=== PATIENT | male | born 1955 | race Caucasian/White ===

== ENCOUNTER 2021-11-14 20:49 | Emergency (ER) | payer MEDICARE, SELFPAY ==
[2021-11-14 21:30] VITALS: BP 172/90; PULSE 85; RESP 18; TEMP 36.4; O2SAT 97; BMI 34.5
--- NOTE | 2021-11-14 21:34 | CRLHL7_ITS ---
For Patients: As a result of the Century Cures Act, medical imaging exams and procedure reports are released immediately into your electronic medical record. You may view this report before your referring provider. If you have questions, please contact your health care provider. INDICATION: Post operative left lower extremity swelling TECHNIQUE: Ultrasound venous duplex left lower extremity. Real-time penaloza-scale (B mode 2D), color Doppler, and spectral Doppler imaging were performed with compression and augmentation. COMPARISON: None FINDINGS: Deep veins: The left common femoral, femoral, popliteal, and visualized calf veins are fully compressible, demonstrate normal color flow, and normal response to mechanical augmentation. The Duplex Doppler waveforms are normal in appearance. Superficial veins: The visualized greater saphenous and superficial veins of the leg and calf are unremarkable. Soft tissue: No masses or cysts are identified. No adenopathy is seen. IMPRESSION: 1. No sonographic evidence of acute deep venous thrombosis seen. Dictated by: Fawad Mathias MD @ 11/14/2021 23:30:56 (Electronically Signed)
--- NOTE | 2021-11-14 22:36 | ED.GENADULT ---
HPI - General Adult General Date Seen: 11/14/21 Chief complaint: Lower Extremity Swelling Stated complaint: LEFT LEG SWELLING,KNEE PROBLEMS POST-SURGERY Time Seen by Provider: 11/14/21 22:09 Source: patient History of Present Illness HPI narrative: Patient is a 66-year-old male who was almost 1 week post left RE. Says he has done well postoperatively, has not had a lot of pain at his incision site. He did develop some swelling in the left leg, which seems to just be getting steadily worse. He was on Xarelto until yesterday, now is on a baby aspirin. Does not have any history of DVT or PE, denies any family history of same. Has not had much pain in the leg, no pain distally. Has not noted significant redness. Just became concerned that things seem to be getting progressively worse, and his was concerned enough that they decided to come in tonight rather than waiting until his appointment tomorrow. Denies chest pain or shortness of breath. Related Data Home Medications Medication Instructions Recorded Confirmed aspirin 81 mg tablet,delayed 81 mg PO BID tab 11/13/21 11/13/21 release (Adult Low Dose Aspirin) atorvastatin 10 mg tablet 10 mg PO .Bedtime tab 11/13/21 11/13/21 celecoxib 200 mg capsule 200 mg PO DAILY 11/13/21 11/13/21 cholecalciferol (vitamin D3) 50 50 mcg PO QDAY 11/13/21 11/13/21 mcg (2,000 unit) tablet (Vitamin D3) epinephrine 0.3 mg/0.3 mL 0.3 mg IM ONCE 11/13/21 11/13/21 injection, auto-injector (EpiPen) gabapentin 300 mg capsule 300 mg PO .hs PRN cap 11/13/21 11/13/21 loratadine 10 mg tablet 10 mg PO QDAY PRN 11/13/21 11/13/21 mirabegron 50 mg tablet,extended 50 mg PO QDAY 11/13/21 11/13/21 release 24 hr (Myrbetriq) omeprazole 20 mg capsule,delayed 20 mg PO BID 11/13/21 11/13/21 release tamsulosin 0.4 mg capsule 0.8 mg PO 11/13/21 11/13/21 Allergies Allergy/AdvReac Type Severity Reaction Status Date / Time cephalexin Allergy Rash Verified 11/13/21 10:48 penicillin V AdvReac jittery, Verified 11/13/21 10:48 irritable VENOM-HONEY BEE Allergy Uncoded 11/13/21 10:48 Review of Systems Status of ROS: Reports: 10 or more systems reviewed and unremarkable except as noted in History and below [facility] Medical History Abdominal pain Arthritis of back Arthritis of knee, left Elevated cholesterol Gastroenteritis GERD (gastroesophageal reflux disease) L4-L5 disc bulge Restless leg syndrome Stroke (cerebrum) Syncope Volume depletion Surgical History History of hernia surgery History of total left hip replacement Status post total left knee replacement Family History (Updated 11/13/21 @ 11:21 by Bekah Huizar [facility]) Mother Cancer of liver Father Heart problem Social History Previous occupational history: industrial truck mechanic Smoking Status: Never smoker Do you use any of these nicotine containing products: None Second hand tobacco smoke exposure: No How often do you have a drink containing alcohol: never How often do you have six or more drinks on one occasion: Never AUDIT-C Alcohol total score: 0 Non-prescribed substance use: denies use service: No Exam Narrative: Exam Narrative: Vital signs as noted above. In general, an alert, well-appearing patient. Head: Normocephalic, atraumatic. Eyes: Pupils are equal reactive. Extraocular movements are full. Conjunctivae are normal. ENT: Mucous membranes are moist. Throat is normal. Neck: Supple without lymphadenopathy. Heart: Regular rate and rhythm. No murmur or rub. Lungs: Clear bilaterally. No increased work of breathing, crackles or wheezes. Abdomen: Soft and nontender. No organomegaly. Extremities: Right lower extremity is essentially normal, trace edema, dorsalis pedis pulse intact. On the left, he has a dressing in place on his incision but I do not see any significant erythema. Nontender, no significant focal swelling over the incision. He does have marked edema of the entire left leg. No erythema, no warmth and he does not have any tenderness. Neurologic: Patient is alert and oriented to person and place. Speech is fluent. Face is symmetric. Moves all extremities equally. Affect: Normal. Skin: Warm and dry. Well perfused. Const: Vital Signs, click to edit/add: Vital Signs - 24 hr 11/14/21 21:30 Temperature 97.6 F Pulse Rate [Left P ulse Oximeter] 85 Respiratory Rate 18 Blood Pressure [Ri ght Upper Arm] 172/90 H Pulse Oximetry 97 Documenting provider has reviewed patient's vital signs: yes Course Course Hospital Course: I did do a venous Doppler here, which was read by Radiology as negative. He does not have any erythema or pain in the leg, I do not think this represents infection. It is unilateral without any significant edema on the right, and I do not think this represents a more systemic problem such as congestive heart failure, renal or liver failure. I did not do more significant systemic workup. He does not have any other history of systemic disease. Short of breath, hypoxic, or showing other signs of systemic illness. His incision does not look infected and is not significantly painful. He has follow-up tomorrow with Orthopedics. He is wearing compression stockings. We talked about elevation. He may need to have more of a full-length compression stocking as the ones he is wearing right now our just up to the knee, but all let him discuss that with Orthopedics. For now, he is comfortable with discharge home. Will follow-up tomorrow, certainly if he has acute worsening or develops new symptoms such as erythema, pain, fever etcetera would want him to return to the emergency department. Vital Signs Vital signs: Initial Vital Signs Temperature 97.6 F 11/14/21 21:30 Temperature Source Temporal Artery Scan 11/14/21 21:30 Pulse Rate 85 11/14/21 21:30 Pulse Rhythm 11/14/21 21:30 Pulse Strength 0+ Absent 11/14/21 21:30 Respiratory Rate 18 11/14/21 21:30 Blood Pressure 172/90 H 11/14/21 21:30 Blood Pressure Mean 117 11/14/21 21:30 Blood Pressure Position Sitting 11/14/21 21:30 Pulse Oximetry 97 11/14/21 21:30 Oxygen Delivery Method 11/14/21 21:30 Vital Signs Temperature 97.6 F 11/14/21 21:30 Pulse Rate 85 11/14/21 21:30 Respiratory Rate 18 11/14/21 21:30 Blood Pressure 172/90 H 11/14/21 21:30 Pulse Oximetry 97 11/14/21 21:30 Temperature 97.6 F 11/14/21 21:30 Pulse Rate 85 11/14/21 21:30 Respiratory Rate 18 11/14/21 21:30 Blood Pressure 172/90 H 11/14/21 21:30 Pulse Oximetry 97 11/14/21 21:30 Discharge Plan Discharge Clinical Impression: Leg edema, left Patient Disposition: Home, Self-Care Condition: Stable Instructions: Leg Edema (ED) Additional Instructions: Orthopedic follow-up tomorrow as planned. Elevate as much as possible. Prescriptions: No Action tamsulosin 0.4 mg capsule 0.8 mg PO 0RF celecoxib 200 mg capsule 200 mg PO DAILY 0RF omeprazole 20 mg capsule,delayed release(DR/EC) 20 mg PO BID 0RF atorvastatin 10 mg tablet 10 mg PO .Bedtime 0RF gabapentin 300 mg capsule 300 mg PO .hs PRN0RF aspirin [Adult Low Dose Aspirin] 81 mg tablet,delayed release (DR/EC) 81 mg PO BID 0RF cholecalciferol (vitamin D3) [Vitamin D3] 50 mcg (2,000 unit) tablet 50 mcg PO QDAY 0RF epinephrine [EpiPen] 0.3 mg/0.3 mL auto-injector 0.3 mg IM ONCE 0RF Rx Instructions: as a single dose; may repeat once loratadine 10 mg tablet 10 mg PO QDAY PRN (Reason: allergy symptoms) 0RF Myrbetriq 50 mg tablet extended release 24 hr 50 mg PO QDAY 0RF Follow Up/Referrals: Anup Carvalho MD [Primary Care Provider] - Stand Alone Forms: Bookatable (Livebookings) Info Instructions
[2021-11-15] VITALS: BP 135/74; PULSE 89; RESP 18; TEMP 36.4
[2021-11-15 00:02] VITALS: BP 135/79; PULSE 89; RESP 16; TEMP 36.1; O2SAT 97
== END 2021-11-14 23:30 | disposition home or self-care (01) ==
PROVIDERS: Emergency Provider Emergency Medicine; PCP Family Medicine
DX: R60.0 Localized edema (principal)
CPT/HCPCS: 93971; 99282; 99283

== ENCOUNTER 2021-12-18 08:30 | Outpatient (RCR) | payer MEDICARE, SELFPAY ==
--- NOTE | 2021-11-22 08:53 | PT.OPEX ---
[facility] [place] Outpatient Eval PT [facility] Outpatient Eval Start: 11/21/21 13:54 Freq: Status: Active Protocol: Document 11/21/21 13:56 PURVI (Rec: 11/21/21 14:16 PURVI [id number]) E-Signed By Candy Pina DPT Physical Therapy Outpatient Evaluation Insurance Information Recert Due Date 01/24/22 Insurance Name Medicare B,Blue Cross/[employer] Medical Diagnosis s/p L RE 11/08/21 Treating Diagnosis s/p L RE 11/08/21 with L hip pain, impaired L hip/knee ROM, impaired L hip/LE mobility/ strength, limping/antalgic gait, limited tolerance for extended standing/walking Subjective Subjective Patient reports having L RE . He d/c home the next day, spouse able to assist at home as needed. Patient is doing HEP 2x/day, riding his stationary bike at home x 5 min a couple of times a day. Using advil or tylenol as needed. Icing regularly. Pain has been tolerable, increases some with activity. Sleep has been ok. Patient reports L hip had been bothering him for awhile prior to surgery as he tried an injection which was not helpful and then had to wait 3 month before he could have RE surgery. Patient was using FWW after surgery, has been able to transition to cane for amb. Patient c/o some L knee tightness, stiffness, soreness after the hip surgery. Hx of L TKA. He has been elevating L LE more the last couple of days and feels some of his swelling is coming down. Pain range 0-7/ 10. Date of Last Physician Visit 11/15/21 Date of Surgery (If applicable) 11/08/21 Current Work Status Retired Precautions Therapy Limitations/Systems Review Not Limited Assessment Assessment/Impression Patient is a 66 year old male s/p L RE 11/08/21 with L hip pain, impaired L hip/knee ROM, impaired L hip/LE mobility/ strength, limping/antalgic gait, limited tolerance for extended standing/walking. Pain range 0-7/10. Patient amb with SPC with slow, limping, antalgic gait. L hip and L knee ROM limited by pain, stiffness, tightness. Moderate swelling noted L thigh, knee, lower leg, ankle. Patient has been doing more elevation and icing the last couple of days and reports swelling is decreasing. Increased effort with transfers sit/supine and with lifting L LE. Reviewed HEP and able to progress with exercises this session. L knee ROM 0-92 degrees - heel slide exercise limited by L knee tightness, stiffness at this time. Patient able to sit with approx 90 degrees of hip flexion comfortable and lie supine comfortably. Patient declined tubigrip for L knee stating he already has some at home and will continue to ice/elevate. He would benefit from skilled PT for pain/swelling management, improved L hip/knee ROM, improved L hip/LE mobility/ strength, gait training, balance/proprioception training, and establishment of HEP. Plan of Care Rehabilitation Potential Good Physical Therapy Goals 1. Decrease L hip/thigh pain to less than/equal to 3/10 with daily activities and with the progression of PT activities over the next 4-6 weeks. 2. Improve L hip ROM over the next 4-6 weeks for improved gait mechanics, return to transfers with ease, and return to reciprocal stair negotiation. 3. Improve L hip/glut/LE/core strength over the next 8-10 weeks for return to transfers with ease, normal gait without AD, and extended standing/walking without flare up of pain. 4. Patient will be I with HEP within 10 weeks for progression toward above goals , ongoing self management of pain/sx, ongoing self improvements in L hip ROM/mobility/strength, and for return to daily and work activities, including standing /walking without flare up of pain. Coordination/Communication With Referral Source Treatment Plan/Direct Interventions Gait Training,Manual Therapy, Therapeutic Exercises Frequency/Duration 1-2x/week Patient Will Be Discharged From Therapy Completion of LTG(s),Skills Plateau,Independent w/HEP, Independently Progressing Evaluation Billing Untimed Code Treatment Minutes 22 Complexity Moderate Certification Information Initial Certification Date 11/21/21 Ending Certification Date 01/24/22
== END 2022-03-17 14:25 | disposition home or self-care (01) ==
PROVIDERS: PCP Family Medicine; Visit Provider Orthopaedic Surgery Sports Medicine
DX: M25.552 Pain in left hip (principal); R26.9 Unspecified abnormalities of gait and mobility; Z51.89 Encounter for other specified aftercare
CPT/HCPCS: 97110; 97162

== ENCOUNTER 2022-10-30 08:27 | Day surgery (SDC) | payer MEDICARE, SELFPAY ==
[2022-10-30] VITALS (13 sets, daily range): BP systolic 143–163; BP diastolic 85–95; PULSE 77–91; RESP 13–20; TEMP 36.4–36.7; O2SAT 96–100; BMI 35.4
--- OUTSIDE RECORDS SUMMARY | 2022-10-30 08:32 | XMS_ITS | Continuity of Care Document ---
Author Name Unknown Organization [facility] Address [address] [place] [address] Phone Care Team Providers Care Bench Molder Apprentice Name Role Phone Zelalem Jules Unavailable Unavailable Allergies, Adverse Reactions, Alerts Substance Reaction Status Criticality Penicillins Mood Change Active No Information Medications Medication Instructions Dosage Effective Dates (start - stop) Status Comments CELEBREX (unknown strength) Not Available - Active GABAPENTIN (unknown strength) Not Available - Active LIPITOR (unknown strength) Not Available - Active OMEPRAZOLE (unknown strength) Not Available - Active TYLENOL (unknown strength) Not Available - Active Procedures Procedure Date OFFICE/OUTPATIENT VISIT EST Phone Office/Outpatient Visit,Est, Mod 2017 X-Ray Exam Lower Spine 2-3 Views 2017 Office/Outpatient Visit,Est, Mod 2017 X-Ray Exam Lower Spine 2-3 Views 2017 Office/Outpatient Visit,Est, Mod 2017 X-Ray Exam Lower Spine 2-3 Views 2017 Postop Followup Visit X-Ray Exam Lower Spine 2-3 Views 2017 Pa Arthdsis Post/Posterolatrl/Postinterb sharon Lumbar Pa Arthdsis Post/Posterlatrl/Postintrbdy adl Spc/Seg Pa Assist Insert Spine Seg Fix, Post, 3- 6 Seg PA Assist Insert interbody cage w/fusion Arthdsis Post/Posterolatrl/Postinterbody Lumbar Arthdsis Post/Posterlatrl/Postintrbdyadl Spc/Seg Insert Spine Seg Fix, Post, 3-6 Seg Insert interbody cage w/fusion 17 Autograft, Spine Surgery, Local 017 Allograft, Spine Surg, Morselized Pre Op Office/Outpatient Visit, 017 Office/Outpatient Visit,Est, Mod 2016 Office/Outpatient Visit,Est, Mod 2013 Special Serv Nec, Procedor Report Office/Outpatient Visit,Est, Low 2013 Special Serv Nec, Procedor Report Postop Followup Visit Special Serv Nec, Procedor Report Bilateral Low Back Disk Surgery/Decompre ss Bilateral Added Spine Disk Surgery/Decom press Bilateral Pa Low Back Disk Surgery/Decom press Bilateral Pa Added Spine Disk Surgery/De compress Office/Outpatient Visit,[facility] 2013 Advance Directives Directive Yes / No Effective Date File Name No Information Encounters Encounter Description Practice Location Reason(s) For Visit Diagnoses Date Provider Providers Copied on Encounter OFFICE/OUTPA TIENT VISIT EST Phone [facility], [address] [place] [address], [id number], [place] tel:[phone] [facility] No Information 0 Zackary Masterson. [address] [place] [address], [place], [id number] , [place]. tel: [phone] Office/Outpa tient Visit,Est, Mod [facility], [address], [place], [place], [id number], [place] tel:[phone] [facility] Post Op - Normal Follow-upArthr odesis status 8 Job Israel. [facility], [address] [place] [address] [address], [place], [place], [id number] , [place]. tel: [phone] Office/Outpa tient Visit,Est, Mod [facility], [address] [place] [address], [id number], [place] tel:[phone] [facility] Spinal stenosis, lumbar region without neurogenic nicky September- 8 Mehbod Amir. [facility], [address], [place], [place], [id number] , [place]. tel: [phone] Office/Outpa tient Visit,Est, Mod [facility], [address], [place], [place], [id number], [place] tel: [phone] [facility] Spinal stenosis, lumbar region with neurogenic claudicationSp inal stenosis, lumbar region without neurogenic nicky Fe- 8 Eckroth Zelalem. [address] [place] [address] [address], [place], [place], [id number] , [place]. tel: [phone] [facility], [address], [place], [place], [id number], [place] tel:[phone] [facility] Encounter for other specified surgical aftercare 8 Mehbod Amir. [facility], [address], [place], [place], [id number] , [place]. tel: [phone] [facility], [address], [place], [place], [id number], [place] tel:[phone] [facility] No Information 7 Eckroth Zelalem. [address] [place] [address] [address], [place], [place], [id number] , [place]. tel: [phone] [facility], [address], [place], [place], [id number], [place] tel: [phone] [facility] No Information 7 Mehbod Amir. [facility], [address], [place], [place], [id number] , [place]. tel: [phone] Pre Op Office/Outpa tient Visit, [facility], [address], [place], [place], [id number], [place] tel:[phone] [facility] Spinal stenosis, lumbar region without neurogenic claudication Nov 7 Mehbod Amir. [facility], [address], [place], [place], [id number] , [place]. tel: [phone] Office/Outpa tient Visit,Est, Mod [facility], [address], [place], [place], [id number], [place] tel:[phone] [facility] Spinal stenosis, lumbar region 0201 7 Mehbod Amir. [facility], [address] [place] [address] [address], [place], [place], [id number] , [place]. tel: [phone] Office/Outpa tient Visit,Est, Mod [facility], [address], [place], [place], [id number], [place] tel:[phone] [facility] Obesity 4 Mehbod Amir. [facility] [place], [address] [place] [address] [address], [place], [place], [id number] , [place]. tel: [phone] Office/Outpa tient Visit,Est, Low Z [facility], [address] [place] [address], [address], [place] tel:[phone] [facility] Back Pain (chief complaint) No Information 9 4 Mehbod Amir. [facility], [address] [place] [address], [place], [place], [id number] , [place]. tel:[phone] Referring Provider: Handy Mcbride [address], [address]. tel:[phone] Z [facility], [address] [place] [address], [address], [place] [phone] [facility] No Information 4 Mehbod Amir. [facility], [address] [place] [address] [address] [facility], [place], [place], [id number] , [place]. tel: [phone] Referring Provider: Handy Mcbride [address], [address]. tel:[phone] Z [facility], Replaced by [facility] [address] [place] [address] [place], [address], [place] tel:[phone] [facility] No Information 4 Mehbod Amir. [facility], [address], [place], [place], [id number] , [place]. [phone] Referring Provider: Handy Mcbride, [facility] [address] [facility], [place], [address]. tel:[phone] Office/Outpa tient Visit,New, Low Z [facility], [address] [place], [place] [address] [address], [place], [address], [place] tel:[phone] [facility] [place] 4 Mehbod Amir. [facility], [address], [place], [place], [id number] , [place]. tel:[phone] Family History Family Member Type Diagnosis Age At Onset Problem (finding) Payers Payer name Insurance type Covered alliance party ID Lyndsay rodarte(s) Noeher Mendoza Work Comp [id number] [facility] [employer] [id number] Social History Type Description Quantity Date Captured Comments Sex Male Smoking Status No Information Chief Complaint And Reason For Visit No Information Reason For Referral Reason For Referral No Information Plan Of Treatment Date Type Action Status No Information History Of Present Illness Encounter Date Complaint History Of Prese nt Illness Back Pain Functional Status Date Functional Assessmen t No Information Instructions Date Instruction Additional Infor radha Weight management: I nstructed to return to General Practitioner timeframe: 1 Month. Related to Overweight Weight Management Education Rela sheron to Overweight Weight management: I nstructed to return to General Practitioner timeframe: 1 Month. Related to Overweight Weight Management Education Rela sheron to Overweight Instructed to return to General Practitioner timeframe: 1 Month. Related to Unspecified Essential Hypertension Blood Pressure Management Relate d to Unspecified Essential Hypertension Weight management: I nstructed to return to General Practitioner timeframe: 1 Month. Related to Overweight Weight Management Education Rela sheron to Overweight Weight management: I nstructed to return to General Practitioner timeframe: 1 Month. Related to Overweight Weight Management Education Rela sheron to Overweight Weight management: I nstructed to return to General Practitioner timeframe: 1 Month. Related to Overweight Weight Management Education Rela sheron to Overweight Weight Management Related to Obe sity, unspecified Assessments Type Assessment Date No Information Patient Care Teams Name Effective Dates (start - stop) Status Members No Information
[2022-10-30] MEDS: LACTATED RINGERS 1000 ML 1,000 ML 100 ML IV (08:35)
--- NOTE | 2022-10-30 09:13 | W.ANESCHARGE ---
Anesthesia Charges Start Date/Time Anesthesia Start Date: 10/30/22 Anesthesia Start Time: 10:02 Stop Date/Time Anesthesia Stop Date: 10/30/22 Anesthesia Stop Time: 12:31
[2022-10-30] MEDS: SODIUM CHLORIDE 0.9 % (FLUSH) 10 ML SYRINGE IVF (09:14)
--- NOTE | 2022-10-30 09:45 | CRLHL7_ITS ---
For Patients: As a result of the Century Cures Act, medical imaging exams and procedure reports are released immediately into your electronic medical record. You may view this report before your referring provider. If you have questions, please contact your health care provider. INDICATION : Laparoscopic cholecystectomy. TECHNIQUE : Intraoperative cholangiogram. Contrast injected via gallbladder neck and cystic duct. FINDINGS : Fluoroscopy time was 61.6 seconds. 3 images were obtained. IMPRESSION : Normal caliber intra and extrahepatic ducts. No filling defects. Contrast seen within the duodenum. Normal intraoperative cholangiogram. Dictated by Chapincito Olson MD @ 10/30/2022 12:25:36 PM (Electronically Signed)
[2022-10-30] MEDS: CLINDAMYCIN 900 MG/50 ML-D5W IVPB (10:12)
[2022-10-30] MEDS: IOPAMIDOL 50 ML VIAL INJECTION (11:35)
[2022-10-30] MEDS: 0.9 % SODIUM CHL 20 ml vial INJECTION (11:35)
[2022-10-30] MEDS: 0.9% SODIUM CHL 50 ML VIAL INJECTION (11:35)
[2022-10-30] MEDS: BUPIVACAINE 0.25% 30 ML INJECTION (12:00)
[2022-10-30] MEDS: fentaNYL 100 MCG/2 ML inj 50 MCG IVP (12:47)
--- NOTE | 2022-10-30 13:29 | P.GSOP_ITS ---
Operative Note Date of procedure: 10/30/22 Pre-op diagnosis: 1. Biliary colic 2. Possible gallstone pancreatitis Post-op diagnosis: Same Type of Procedure: 1. Laparoscopic cholecystectomy 2. Intraoperative cholangiogram Indications: The patient is a 67-year-old male who presented to the emergency department 2 weeks ago with epigastric pain. Workup revealed a distended gallbladder with gallstones on CT. He was sent to follow-up in clinic to discuss removing his gallbladder. In clinic he still had mild symptoms though he had mostly improved. Labs revealed normal LFTs those lipase was very mildly elevated. Ultrasound of the gallbladder showed a normal caliber common bile duct and gallstones. After discussion of options he agreed to proceed with cholecyst ectomy. Procedure Description: After discussing the risks and benefits of the procedure, the patient signed informed consent.? The operative site was marked and the patient was brought to the operating room and placed on the operating table in supine position.? Care was taken to pad the patient's pressure points.?? The patient was then intubated by anesthesia.?? The operative site was then prepped and draped in the usual sterile fashion.? A time-out was then performed. Entrance to the abdomen was gained via a 5 mm Visiport in the left upper maribel drant. The abdomen was insufflated and briefly surveyed for signs of injury. There was none. A 10 mm supra umbilical port was placed as well as 2 working ports along the right costal margin, all under direct vision. The patient was then placed in reverse Trendelenburg position with the right side up. The gallbladder fundus was grasped and retracted cephalad. The infundibulum was grasped. A combination of hook cautery and blunt dissection was used to carefully dissect out the cystic duct and artery until they could clearly be seen entering the gallbladder without any intervening structures. The artery was clipped with 2 clips proximal and 2 clips distally and divided with a scissor. In I then turned my attention to performing the cholangiogram. There was small stones noted in the cystic duct. I did push those into the gallbladder carefully using a Stephanie dissect her. Once this was done a clip was placed across the proximal cystic duct and a ductotomy was created. A cholangioca theter was then advanced into the abdomen however I was unable to get this to pass into the cystic duct. After some manipulation it was discovered that there was a stone impacted in the cystic duct. I was able to eventually get this worked out of the cystic duct and then was able to pass the cholangiocatheter. An the patient was laid flat and fluoroscopy was brought into the field. Contrast was injected into the cholangiocatheter with prompt filling of the right and left hepatic ducts, the distal cystic duct, the common bile duct and the duodenum. I very closely examined the distal common bile duct to ensure there are no filling defects, particularly with the manipulation of stones in the cystic duct. There did not appear to be any filling defects. Once this was done, the patient was placed back into reverse Trendelenburg position and the cholangiocatheter was removed. Two clips were placed beyond the ductotomy on the distal cystic duct and the cystic duct was transected. The gallbladder was then taken off of the liver bed and removed from the abdomen using an Endo-Catch bag. The gallbladder bed was surveyed for hemostasis and there was noted to be a small bleeding area in the gallbladder bed. This was clipped which resulted in excellent hemostasis. A small amount of bile which had spilled during the cholangiogram was suction from the abdomen. The umbilical port fascia was closed with 0 Vicryl. The remaining ports were then removed and the abdomen desufflated. The skin was closed with absorbable subcuticular suture. Sterile dressings were applied. Instrument sponge and needle counts were correct at the end of the case. The patient was then woken and transferred to the PACU in stable condition. ? The patient tolerated the procedure well. Findings: 1. Gallstones 2. Negative intraoperative cholangiogram Anesthesia: GETA Surgeon: Nilsa Ni MD Estimated blood loss (mL): 10 Specimen: Gallbladder Condition: stable Disposition: PACU
[2022-10-30] MEDS: HYDROCODONE-ACETAMIN 5-325 MG 1 TAB PO (13:34)
--- NOTE | 2022-11-12 06:44 | W.ANESCHARGE ---
Anesthesia Charges Start Date/Time Anesthesia Start Date: 10/30/22 Anesthesia Start Time: 10:02 Stop Date/Time Anesthesia Stop Date: 10/30/22 Anesthesia Stop Time: 12:31
== END 2022-10-30 14:15 | disposition home or self-care (01) ==
PROVIDERS: PCP Family Medicine; Visit Provider Surgery
PROC: 0FT44ZZ Resection of Gallbladder, Percutaneous Endoscopic Approach (ICD-10-PCS; CPT 47563; principal; 2022-10-30 09:45)
DX: K80.20 Calculus of gallbladder without cholecystitis without obstruction (principal)
CPT/HCPCS: 47563; 00790; 74300; 88304; A9270; J0330; J1100; J1200; J2405; J2704; J2710; J3010; J3490; J7120; Q9967; S0077

== ENCOUNTER 2022-12-24 13:09 | Emergency (ER) | payer MEDICARE, SELFPAY ==
[2022-12-24 13:12] VITALS: BP 129/79; PULSE 86; RESP 18; TEMP 36.8; O2SAT 97; BMI 34.1
--- NOTE | 2022-12-24 13:19 | ED_ITS ---
HPI - General Adult General Chief complaint: Insect Bite Stated complaint: bee sting - allergic Time Seen by Provider: 12/24/22 13:13 History of Present Illness HPI narrative: This 67-year-old male comes in with a bee sting on his left wrist area that occurred about 5 hours prior to arrival. He states that he has had excessive reactions to bee stings in the past and has had a EpiPen to treat if needed. He states he currently does not have 1 because his insurance had not covered at but he states that he now has different insurance and this may be more workable for him. He did not have any symptoms of angioedema or anaphylaxis. He does have erythema spreading typical of a cellulitis type of picture on the left wrist. It is now an area about 12 cm in diameter on the volar aspect of his left wrist. He is not having any other symptoms elsewhere. He did take Benadryl after this event this morning and states that he takes Claritin every day your around. He also had poison madan last week and his primary doctor prescribed a steroid cream that is helped him with those symptoms. Related Data Home Medications Medication Instructions Recorded Confirmed aspirin 81 mg tablet,delayed 81 mg PO BID 11/13/21 10/30/22 release (Adult Low Dose Aspirin) atorvastatin 10 mg tablet 10 mg PO .Bedtime 11/13/21 10/30/22 celecoxib 200 mg capsule 200 mg PO DAILY 11/13/21 10/30/22 cholecalciferol (vitamin D3) 50 50 mcg PO QDAY 11/13/21 10/30/22 mcg (2,000 unit) tablet (Vitamin D3) epinephrine 0.3 mg/0.3 mL 0.3 mg IM ONCE 11/13/21 10/30/22 injection, auto-injector (EpiPen) gabapentin 300 mg capsule 300 mg PO .hs PRN 11/13/21 10/30/22 loratadine 10 mg tablet 10 mg PO QDAY PRN allergy symptoms 11/13/21 10/30/22 omeprazole 20 mg capsule,delayed 20 mg PO BID 11/13/21 10/30/22 release Previous Rx's Medication Instructions Recorded hydrocodone 5 mg-acetaminophen 325 1 tab PO Q6H PRN Pain #15 tabs 10/30/22 mg tablet azithromycin 250 mg tablet 250 mg PO DAILY #6 tabs 12/24/22 (Zithromax Z-Tramaine) epinephrine 0.3 mg/0.3 mL 0.3 mg (0.3 mL) IM Q5-15M PRN #2 ea 12/24/22 injection, auto-injector (EpiPen 2-Tramaine) Allergies Allergy/AdvReac Type Severity Reaction Status Date / Time cephalexin Allergy Rash Verified 12/20/21 10:03 penicillin V AdvReac jittery, Verified 12/20/21 10:03 irritable VENOM-HONEY BEE Allergy Uncoded 12/20/21 10:03 Review of Systems Status of ROS: Reports: 10 or more systems reviewed and unremarkable except as noted in History and below Narrative: Constitutional: No fevers, no weight gain or loss. Eyes: No discharge. No vision changes. HENT: No congestion, no sore throat, no ear pain. Cardiovascular: No chest pain, no palpitations. Respiratory: No shortness of breath, no wheezes, no cough. Gastrointestinal: No abdominal pain, no vomiting, no diarrhea. Genitourinary: No dysuria, no hematuria. Musculoskeletal: Normal range of motion. Skin: Bee sting with surrounding erythema as described above. Poison madan in his lower extremities. Neurological: No dizziness, weakness, sensory change, speech change. Endo/Heme/Allergies: No bruising or bleeding. No polydipsia. Pysch: no suicidality, no anxiety, no insomnia. All other systems reviewed and are negative. [facility] Medical History Restless leg syndrome ?G25.81 - Restless legs syndrome (ICD-10) Arthritis of back ?M47.9 - Spondylosis, unspecified (ICD-10) Arthritis of knee, left ?M17.12 - Unilateral primary osteoarthritis, left knee (ICD-10) L4-L5 disc bulge ?M51.26 - Other intervertebral disc displacement, lumbar region (ICD-10) GERD (gastroesophageal reflux disease) ?K21.9 - Gastro-esophageal reflux disease without esophagitis (ICD-10) Elevated cholesterol ?E78.00 - Pure hypercholesterolemia, unspecified (ICD-10) Stroke (cerebrum) ?I63.9 - Cerebral infarction, unspecified (ICD-10) Volume depletion ?E86.9 - Volume depletion, unspecified (ICD-10) Syncope ?R55 - Syncope and collapse (ICD-10) Gastroenteritis ?K52.9 - Noninfective gastroenteritis and colitis, unspecified (ICD-10) Abdominal pain ?R10.9 - Unspecified abdominal pain (ICD-10) Surgical History History of hernia surgery ?Z98.890 - Other specified postprocedural states (ICD-10) ?Z87.19 - Personal history of other diseases of the digestive system (ICD-10) 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) ?Z96.642 - Presence of left artificial hip joint (ICD-10) 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) ?Z96.652 - Presence of left artificial knee joint (ICD-10) Family History Mother Cancer of liver Father Heart problem Social History Previous occupational history: concrete mixing truck driver Smoking Status: Never smoker Do you use any of these nicotine containing products: None Second hand tobacco smoke exposure: No How often do you have a drink containing alcohol: monthly or less How often do you have six or more drinks on one occasion: Never AUDIT-C Alcohol total score: 1 Non-prescribed substance use: denies use Caffeine: Yes (pop) service: No Exam Narrative: Exam Narrative: Constitutional: Well-developed, well-nourished, no acute distress. HEENT: Normocephalic, atraumatic. Neck: Normal range of motion. Nontender. Supple. Heart: Intact distal pulses. Lungs: No chest discomfort. No wheezes, rhonchi, or rales. Abdomen: Nontender. Back: Normal range of motion. Extremities: Normal range of motion. No injury. Skin: Intact. Bee sting on the volar aspect of his left wrist area with surrounding erythema. No sign of angioedema. Neurologic: No altered sensation. No weakness. Alert and oriented. Psychiatric: No suicidality. No anxiety or depression. No insomnia. Nursing notes and vitals signs are reviewed. Const: Vital Signs, click to edit/add: Vital Signs - 24 hr 12/24/22 13:12 Temperature 98.3 F Pulse Rate [Right Pulse Oximeter] 86 Respiratory Rate 18 Blood Pressure [Ri ght Upper Arm] 129/79 Pulse Oximetry 97 Oxygen Delivery Me thod Room Air Course Vital Signs Vital signs: Initial Vital Signs Temperature 98.3 F 12/24/22 13:12 Temperature Source Temporal Artery Scan 12/24/22 13:12 Pulse Rate 86 12/24/22 13:12 Respiratory Rate 18 12/24/22 13:12 Blood Pressure 129/79 12/24/22 13:12 Blood Pressure Mean 95 12/24/22 13:12 Blood Pressure Position Sitting 12/24/22 13:12 Pulse Oximetry 97 12/24/22 13:12 Oxygen Delivery Method Room Air 12/24/22 13:12 Vital Signs Temperature 98.3 F 12/24/22 13:12 Pulse Rate 86 12/24/22 13:12 Respiratory Rate 18 12/24/22 13:12 Blood Pressure 129/79 12/24/22 13:12 Pulse Oximetry 97 12/24/22 13:12 Oxygen Delivery Method Room Air 12/24/22 13:12 Temperature 98.3 F 12/24/22 13:12 Pulse Rate 86 12/24/22 13:12 Respiratory Rate 18 12/24/22 13:12 Blood Pressure 129/79 12/24/22 13:12 Pulse Oximetry 97 12/24/22 13:12 Oxygen Delivery Method Room Air 12/24/22 13:12 Medical Decision Making MDM Narrative Medical decision making narrative: This patient was stung by a bee about 5 hours prior to arrival. He has localized reaction but no systemic symptoms. He is not in need of any epinephrine at this time. He did take Benadryl and takes Claritin every day. His symptoms on his left wrist are typical of a cellulitis despite the rather recent injury. It could be that this is not truly infectious but he did receive a prescription for Z-Pac as he is allergic to Keflex. I also provided a prescription for an EpiPen. Additionally I indicated signs and symptoms that would benefit from her return for re-evaluation if worsening symptoms occurred. Discharge Plan Discharge Clinical Impression: Bee sting reaction Patient Disposition: Home, Self-Care Condition: Stable Additional Instructions: Use gelx-fum-gdfrvwl antihistamines as needed and directed. Use steroid cream as prescribed. Take Keflex also as prescribed today. Use EpiPen if having symptoms of angioedema or anaphylaxis. Follow up with MD otherwise as needed. Prescriptions: New epinephrine [EpiPen 2-Tramaine] 0.3 mg/0.3 mL auto-injector 0.3 mg IM Q5-15M PRNQty: 2 0RF Rx Instructions: do not exceed 3 doses per episode azithromycin [Zithromax Z-Tramaine] 250 mg tablet 250 mg PO DAILY Qty: 6 0RF No Action celecoxib 200 mg capsule 200 mg PO DAILY omeprazole 20 mg capsule,delayed release(DR/EC) 20 mg PO BID atorvastatin 10 mg tablet 10 mg PO .Bedtime gabapentin 300 mg capsule 300 mg PO .hs PRN aspirin [Adult Low Dose Aspirin] 81 mg tablet,delayed release (DR/EC) 81 mg PO BID cholecalciferol (vitamin D3) [Vitamin D3] 50 mcg (2,000 unit) tablet 50 mcg PO QDAY epinephrine [EpiPen] 0.3 mg/0.3 mL auto-injector 0.3 mg IM ONCE Rx Instructions: as a single dose; may repeat once loratadine 10 mg tablet 10 mg PO QDAY PRN (Reason: allergy symptoms) hydrocodone-acetaminophen 5-325 mg Tablet 1 tab PO Q6H PRN (Reason: Pain) Qty: 15 0RF Follow Up/Referrals: Anup Carvalho MD [Primary Care Provider] - Stand Alone Forms: Mito[employer] Info Instructions
--- OUTSIDE RECORDS SUMMARY | 2022-12-24 13:30 | XMS_ITS | Continuity of Care Document ---
Author Name Unknown Organization [facility] Address [address] [place] [address] Phone Care Team Providers Care Product Owner Name Role Phone Zelalem Jules Unavailable Unavailable [...] Added Spine Disk Surgery/De compress Office/Outpatient Visit,New [facility] 2013 Advance Directives Directive Yes / No Effective Date File Name No Information Encounters Encounter Description Practice Location Reason(s) For Visit Diagnoses Date Provider Providers Copied on Encounter OFFICE/OUTPA TIENT VISIT EST Phone [facility], [address] [place] [address], [id number], [place] tel:[phone] [facility] No Information 0 Zackary Masterson. [address] [place] [address], [place], [id number] , [place]. tel: [phone] Office/Outpa tient Visit,Est, Mod [facility], [address], [place], [place], [id number], [place] tel:[phone] [facility] Post Op - Normal Follow-upArthr odesis status [address] [facility], [address] [place] [address], [place], [place], [id number] , [place]. tel: [phone] Office/Outpa tient Visit,Est, Mod [facility], [address] [place] [address], [id number], [place] tel:[phone] [facility] Spinal stenosis, lumbar region without neurogenic nicky September- [address] [facility], [address], [place], [place], [id number] , [place]. tel: [phone] Office/Outpa tient Visit,Est, Mod [facility], [address], [place], [place], [id number], [place] tel: [phone] [facility] Spinal stenosis, lumbar region with neurogenic claudicationSp inal stenosis, lumbar region without neurogenic nicky Fe- 8 Eckroth Zelalem. [address] [place] [address], [place], [place], [id number] , [place]. tel: [phone] [facility], [address], [place], [place], [id number], [place] tel:[phone] [facility] Encounter for other specified surgical aftercare [address] [facility], [address], [place], [place], [id number] , [place]. tel: [phone] [facility], [address], [place], [place], [id number], [place] tel:[phone] [facility] No Information 7 Eckroth Zelalem. [address] [place] [address], [place], [place], [id number] , [place]. tel: [phone] [facility], [address], [place], [place], [id number], [place] tel: [phone] [facility] No Information [address] [facility], [address], [place], [place], [id number] , [place]. tel: [phone] Pre Op Office/Outpa tient Visit, [facility], [address], [place], [place], [id number], [place] tel:[phone] [facility] Spinal stenosis, lumbar region without neurogenic claudication Nov [address] [facility], [address], [place], [place], [id number] , [place]. tel: [phone] Office/Outpa tient Visit,Est, Mod [facility], [address], [place], [place], [id number], [place] tel:[phone] [facility] Spinal stenosis, lumbar region [address] [facility], [address] [place] [address] [address], [place], [place], [id number] , [place]. tel: [phone] Office/Outpa tient Visit,Est, Mod [facility], [address], [place], [place], [id number], [place] tel:[phone] [facility] Obesity [address] [facility], [address] [place] [address], [place], [place], [id number] , [place]. tel: [phone] Office/Outpa tient Visit,Est, Low Z [facility], [address] [place] [address], [address], [place] tel:[phone] [facility] Back Pain (chief complaint) No Information [address] [facility], [address] [place] [address], [place], [place], [id number] , [place]. tel:[phone] Referring Provider: Handy Mcrbide [address], [address]. tel:[phone] [facility], [address] [place] [address], [address], [place] [phone] [facility] No Information [address] [facility], [address] [place] [address] Suite [facility], [place], [place], [id number] , [place]. [phone] Referring Provider: Handy Mcbride [address], [address]. tel:[phone] [facility], [facility] [address] [place] [address] [place], [address], [place] tel:[phone] [facility] No Information [address] [facility], [address], [place], [place], [id number] , [place]. [phone] Referring Provider: Handy Mcbride, [facility] [address] [facility], [place], [address]. tel:[phone] Office/Outpa tient Visit,New, Low Z [facility], [address] [place] [address], [place], [address], [place] tel:[phone] [facility] LUM[place] [address] [facility], [address], [place], [place], [id number] , [place]. tel:[phone] Family History Family Member Type Diagnosis Age At Onset Problem (finding) Payers Payer name Insurance type Covered libertarian ID Lyndsay rodarte(s) Noekody Mendoza Work Comp WC [id number] [facility] [employer] [id number] Social History Type Description Quantity Date Captured Comments Sex Male Smoking Status No Information Chief Complaint And Reason For Visit No Information Reason For Referral Reason For Referral No Information History Of Present Illness Encounter Date Complaint History Of Prese nt Illness Back Pain Functional Status Date Functional Assessmen t No Information Instructions Date Instruction Additional Infor mation Weight management: I nstructed to return to [...]
== END 2022-12-24 14:15 | disposition home or self-care (01) ==
PROVIDERS: Emergency Provider Emergency Medicine Emergency Medical Services; PCP Family Medicine
DX: S60.862A Insect bite (nonvenomous) of left wrist, initial encounter (principal); T63.441A Toxic effect of venom of bees, accidental (unintentional), initial encounter
CPT/HCPCS: 99283; 99284

== ENCOUNTER 2023-08-27 07:44 | Outpatient (CLI) | payer MEDICARE, SELFPAY ==
--- OUTSIDE RECORDS SUMMARY | 2023-08-27 07:47 | XMS_ITS | Continuity of Care Document ---
Author Name Unknown Organization [facility] Address [address] [place] [address] Phone Care Team Providers Care Stitch Rubber Name Role Phone Zelalem Jules Unavailable Unavailable [...] Added Spine Disk Surgery/De compress Office/Outpatient Visit,New [facility] 2013 Advance Directives Directive Yes / No Effective Date File Name No Information Encounters Encounter Description Practice Location Reason(s) For Visit Diagnoses Date Provider Providers Copied on Encounter OFFICE/OUTPA TIENT VISIT EST Phone [facility], [address] [place] [address], [id number], [place] tel:[phone] [facility] No Information 0 Zackary Masterson. [address] [place] [address] [address], [place], [id number] , [place]. tel: [phone] Office/Outpa tient Visit,Est, Mod [facility], [address], [place], [place], [id number], [place] tel:[phone] [facility] Post Op - Normal Follow-upArthr odesis status 8 Job Israel. [facility], [address] [place] [address] [address], [place], [place], [id number] , [place]. tel: [phone] Office/Outpa tient Visit,Est, Mod [facility], [address] [place] [address], [id number], [place] tel:[phone] [facility] Spinal stenosis, lumbar region without neurogenic nicky September- 8 Mehbod Amir. [facility], [address], [place], [place], [id number] , [place]. tel: [phone] Office/Outpa tient Visit,Est, Mod [facility], [address], [place], [place], [id number], [place] tel: [phone] [facility] Spinal stenosis, lumbar region with neurogenic claudicationSp inal stenosis, lumbar region without neurogenic nicky Fe- 8 Eckroth Zelalem. [address] [place] [address] [address], [place], [place], [id number] , [place]. tel: [phone] [facility], [address], [place], [place], [id number], [place] tel:[phone] [facility] Encounter for other specified surgical aftercare 8 Mehbod Amir. [facility], [address], [place], [place], [id number] , [place]. tel: [phone] [facility], [address], [place], [place], [id number], [place] tel:[phone] [facility] No Information 7 Eckroth Zelalem. [address] [place] [address] [address], [place], [place], [id number] , [place]. tel: [phone] [facility], [address], [place], [place], [id number], [place] tel: [phone] [facility] No Information 7 Mehbod Amir. [facility], [address], [place], [place], [id number] , [place]. tel: [phone] Pre Op Office/Outpa tient Visit, [facility], [address], [place], [place], [id number], [place] tel:[phone] [facility] Spinal stenosis, lumbar region without neurogenic claudication Nov 7 Mehbod Amir. [facility], [address], [place], [place], [id number] , [place]. tel: [phone] Office/Outpa tient Visit,Est, Mod [facility], [address], [place], [place], [id number], [place] tel:[phone] [facility] Spinal stenosis, lumbar region 0 7 Mehbod Amir. [facility], [address], [place], [place], [id number] , [place]. tel: [phone] Office/Outpa tient Visit,Est, Mod [facility], [address], [place], [place], [id number], [place] tel:[phone] [facility] Obesity 4 Mehbod Amir. [facility], [address] [place] [address] [address], [place], [place], [id number] , [place]. tel: [phone] Office/Outpa tient Visit,Est, Low Z [facility], [address] [place] [address], [place], [address], [place] tel:[phone] [facility] Back Pain (chief complaint) No Information 4 Mehbod Amir. [facility], [address] [place] [address] [address], [place], [place], [id number] , [place]. tel:[phone] Referring Provider: Hira Christianson [facility] [address], [place], [address]. tel:[phone] Z [facility], [address] [place], [place] [address]ite [facility], [place], [address], [place] tel:[phone] [facility] No Information 4 Mehbod Amir. [facility], [address] [place] [address] [address], [place], [place], [id number] , [place]. [phone] [facility] [address], [place], [address]. tel:[phone] Z [facility], [address] [place], [place] [address], [place], [address], [place] tel:[phone] [facility] No Information 4 Mehbod Amir. [facility], [address], [place], [place], [id number] , [place]. tel:[phone] Referring Provider: Handy Glynn, [facility] [address] , [place], [address]. tel:[phone] Office/Outpa tient Visit,New, Low Z [facility], [address] [place], [place] [address], [place], [address], [place] tel:[phone] [facility] [place] 4 Mehbod Amir. [facility], [address], [place], [place], [id number] , [place]. tel:[phone] Family History Family Member Type Diagnosis Age At Onset Problem (finding) Payers Payer name Insurance type Covered green party ID Lyndsay rodarte(s) Kusum Mendoza Work Comp [id number] [facility] [employer] [id number] Social History Type Description Quantity Date Captured [...]
--- OUTSIDE RECORDS SUMMARY | 2023-08-27 07:49 | XMS_ITS | Clinical Summary ---
Author Name Unknown Organization [facility] Address [place], [place] [address] Care Team Providers Care Director [employer] And [employer] Name Role Phone Uma Carvalho MD Primary Care Provider [phone] Allergies Active Allergy Reactions Criticality Noted Date Comments Venom-Honey Bee Edema 01/07/2017 Cephalexin Confusion,GI Upset Low 02/15/2020 Brain fog Penicillins Anxiety 06/15/2007 GI Upset, And jittery Medications Medication Sig Dispensed Refills Start Date End Date Status loratadine (CLARITIN) 10 mg tabletIndications:Bee sting, accidental or unintentional, initial encounter Take 10 mg by mouth once daily if needed for Allergy Symptoms. 0 7 Active aspirin chewable 81 mg chewable tablet Take 81 mg by mouth once daily with a meal. Active Cholecalciferol, Vitamin D3, (VITAMIN D-3) 2,000 unit tablet Take 2,000 Units by mouth once daily. Active acetaminophen (TYLENOL) 325 mg tabletIndications:Acute post-operative pain Take 2 tablets by mouth every 4 hours if needed (Mild pain). Max acetaminophen dose: 4000mg in 24 hrs. 50 tablet 7 Active atorvastatin (LIPITOR) 10 mg tabletIndications:Pure hypercholesterolemia Take 1 Tablet (10 mg) by mouth once daily. 90 Tablet 3 3 Active celecoxib (CELEBREX) 200 mg capsuleIndications:Displ acement of lumbar intervertebral disc without myelopathy Take 1 Capsule (200 mg) by mouth once daily with a meal. 90 Capsule 3 3 Active EPINEPHrine (EpiPen) 0.3 mg/0.3 mL auto-injectorIndications :Bee sting reaction, accidental or unintentional, initial encounter Inject 0.3 mg intramuscular one time if needed for Allergic Reaction. 1 Each 2 3 Active gabapentin (NEURONTIN) 300 mg capsuleIndications:Lumba r radicular pain,Restless legs syndrome (RLS) Take 1 capsule by mouth at bedtime as needed . 90 Capsule 3 3 Active omeprazole (PRILOSEC) 20 mg Delayed-Release capsuleIndications:Gastr oesophageal reflux disease, unspecified whether esophagitis present Take 1 Capsule (20 mg) by mouth once daily before a meal. 100 Capsule 3 3 Active metoprolol succinate (Toprol XL) 25 mg Sustained-Release tabletIndications:Abnorm al stress test Take 1 Tablet (25 mg) by mouth once daily. 90 Tablet 3 3 Active Additional Information Patient taking differently:25 mg Oral DAILY,On hold per cardiology, Reported on 08/05/2023 isosorbide mononitrate (IMDUR) 30 mg extended release tablet 24 HourIndications:Abnormal stress test Take 1 Tablet (30 mg) by mouth once daily. 90 Tablet 3 3 Active Additional Information Patient taking differently:30 mg Oral DAILY,On hold per cardiology, Reported on 08/05/2023 famotidine (Pepcid) 20 mg tablet Take 20 mg by mouth two times daily. Active psyllium husk, with sugar, (Metamucil Free) 3 gram/7 gram powd Mix in liquid then take by mouth. Active pantoprazole (PROTONIX) 40 mg delayed-release tabletIndications:Chroni c GERD Take 1 Tablet (40 mg) by mouth once daily. 90 Tablet 1 4 Active Active Problems Problem Noted Date Diagnosed Date Multiple fractures of ribs 10/24/202210/24 S/P total knee arthroplasty 10/24/2022 06/01/2023 Status post total hip replacement, left 11/09/19 22 10/24/2022 Cerebellar infarct 10/29/2018 Overview: Incidentally found 2 right 2 mm cerebellar infarcts on MRI 10/2018. Adenomatous colon polyp 10/05/2017 Overview: Colonoscopy 09/2017 polyp, repeat in 5 years Gastroesophageal reflux disease 02/04/2016 Hydrocele in adult 08/15/2015 Lumbar radicular pain 03/08/2015 Osteoarthritis of left glenohumeral joint 2014 Lumbar spinal stenosis 03/02/2013 L3-4 and L4-5 disk herniation 10/21/2006 Pure hypercholesterolemia 09/25/2006 Resolved Problems Problem Noted Date Diagnosed Date Resolved Date Blood clotting tendency 03/23/202003/18 Encounters Date Type Department Care Team Description 08/05/2023 1:30 PM CDT Office Visit [facility] [address] [facility] [address] Jesús Disla MD Consult (Stomach ache/discomfort, occurs after eating) 08/05/2023 Travel 07/09/2023 Telephone [facility] [address] [facility] [place] [address] Uma Carvalho MD Abnormal Lab Results 07/06/2023 7:00 AM STRIP DEBURRER Orders Only [facility] [address] [facility] [place] [address] Lab, [place] Lab 07/06/2023 Travel 06/30/2023 10:15 AM STRIP DEBURRER Orders Only [facility] [address] [facility] [place] [address] Lab, [place] [facility] 06/30/2023 Telephone [facility] [address] [facility] [place] [address] Uma Carvalho MD Concerns 06/12/2023 12:40 PM STRIP DEBURRER Office Visit [facility] [address] [place] [address] Uma Carvalho MD Follow Up (Go over ultrasound results/Patient wondering, what are the next steps now) 06/12/2023 Travel 06/11/2023 7:36 AM STRIP DEBURRER - 06/11/2023 11:59 PM STRIP DEBURRER Hospital Encounter [place] [address] [address] [facility] [place] [address] Uma Carvalho MD Acute upper abdominal pain 06/10/2023 10:55 AM STRIP DEBURRER Office Visit [facility] [address] [place] [address] Uma Carvalho MD Follow Up (Coronary andiogram/They didn't find anything wrong after the procedure/Still feeling like crap) 06/10/2023 Travel 06/03/2023 7:27 AM STRIP DEBURRER - 06/03/2023 12:45 PM STRIP DEBURRER Hospital Encounter [facility] [address] [place] [address] Shannon Peres MD Cardiovascular symptoms Discharge Disposition: Home Self Care 06/03/2023 Travel 05/28/2023 Telephone [facility] [address] [place] [address] Wendy Cazares RN Pre Procedure from Last 3 Months Immunizations Name Administration Dates Next Due AMB Influenza, IIV3 (Age >=3 years)(Flu Clinic Only) 03/02/2013,02/16/2012,03/14/2011,2009,03/17/2008 AMB Influenza, IIV4 PF (=>6 mos Flulaval,Fluzone Fluarix)(Flu Clinic Only) 02/24/2018,02/04/2017,02/08/2016 COVID-19 Vaccine Spikevax (M oderna 50mcg/0.5mL) 12YO+ [id number] Formula PF 04/24/2023 COVID-19 vaccine (Jamie-J& J) PF, MDV 07/28/2020 COVID-19 vaccine (NitroPCR-Bio NTech 30mcg/0.3mL) 12YO+ BIVALENT PF, MDV 03/13/2022 COVID-19 vaccine (NitroPCR-Bio NTech 30mcg/0.3mL) 12YO+ DAYANA-SUCROSE PF, MDV 09/11/2021 Influenza A (H1N1), Inactiva sheron (Age >=3 Years) 03/28/2009 Influenza Virus, Unspecified 02/16/2019, 03/02/2013,02/16/2012,2010,03/14/2010,03/17/2008,03/24/2007,1 05/28/2005,03/11/2005,03/14/2003 Influenza, IIV3 (Age 6-35 mos) 03/24/2007 Influenza, IIV3 (Age >=3 years) 02/12/2009 Influenza, IIV4 02/04/2017, 6,03/05/2015,2013 Influenza, Inactivated AIIV4 (Age 65+ Years) Preserv Free 03/05/2023,03/13/2022,04/05/2021,2019 Influenza, Inactivated IIV3 (Age 65+ Years) Preserv Free 02/16/2019 Pneumococcal Poly,23-Valent (Pneumovax) 04/05/2021 Pneumococcal conj 13-Valent (Prevnar 13) 03/23/2020,02/16/2019 Td (Age >=7 Years) 10/02/2004 Tdap 11/04/2013 Zoster (Shingrix-RZV, recombinant) 12/21/2018, Zoster (Zostavax-ZVL, live) 12/08/2012 Family History Medical History Relation Name Comments Heart Disease Father CABG at 68 Other Father from b lood disorder at 78 Cancer Mother from l iver cancer at age 37 Heart Disease Paternal Grandfather o f IA at 67 Relation Name Status Comments Father Mother Paternal Grandfather Social History Tobacco Use Types Packs/Day Years Used Date Smoking Tobacco: Never Smokeless Tobacco: Never Tobacco Cessation:Counseling Given: Yes Alcohol Use Standard Drinks/Week Comments Yes 0 (1 standard drink = 0.6 oz pur e alcohol) moderate PHQ-2 Answer Date Recorded PHQ-2 TOTAL SCORE 0 04/24/2023 Social Connections Answer Date Recorded Frequency of Communication with Friends and Fami ly 0 09/17/2022 Alcohol Use Answer Date Recorded How often do you have a drink containing alcohol ? 2 07/29/2021 How many drinks containing a lcohol do you have on a typical day when you are drinking? 0 07/29/2021 How often do you have five or more drinks on one occasion? 0 07/29/2021 Financial Resource Strain Answer Date R ecorded Difficulty of Paying Living Expenses 3 09/17/2022 Difficulty of Paying Living Expenses Not on file 09/17/2022 Food Insecurity Answer Date Recorded Worried About Running Out of Food in the Last Ye ar 1 09/17/2022 Transportation Needs Answer Date Record ed Lack of Transportation (Medical) 1 09/17/2022 Housing Stability Answer Date Recorded Unable to Pay for Housing in the Last Year 1 09/17/2022 Sex and Gender Information Value Date Recorded Sex Assigned at Not on file Gender Identity Not on file Sexual Orientation Not on file Travel History Travel Start Travel End [place] 07/15/2023 07/28/2023 Obstetrics History Last Filed Vital Signs Vital Sign Reading Time Taken Comments Blood Pressure 123/69 08/05/2023 1:30 PM CDT Pulse 83 08/05/2023 1:30 PM CDT Temperature 36.6 ??C (97.9 ??F) 06/12/2023 12:[address] Respiratory Rate 18 06/03/2023 12:04 PM STRIP DEBURRER Oxygen Saturation 98% 08/05/2023 1:30 PM CDT Inhaled Oxygen Concentration - - Weight 98.4 kg (217 lb) 08/05/2023 1:30 PM CDT Height 170.2 cm (5' 7) 06/03/2023 7:00 AM STRIP DEBURRER Body Mass Index 33.99 06/03/2023 7:00 AM STRIP DEBURRER Plan of Treatment Upcoming Encounters Date Type Department Care Team (Late st Contact Info) Description 09/04/2023 10:30 AM CDT Office Visit [facility] [address] [place] [address] [place] [address] Shannon Peres MD [address] [place] [address] [phone] Health Maintenance Due Date Last Done Comments Tetanus booster 11/05/2023 11/04/2013, 10/02/2004 Influenza for age 65+ 01/17/2024 03/05/2023 , 03/13/2022, 04/05/2021, Additional history exists Medicare Wellness for age 65+ 04/24/2024, 04/16/2022, 04/05/2021 Depression screening for age 12+ 04/26/2024 04/26/2023, 04/24/2023, 04/16/2022, Additional history exists BMI (ht and wt on same day) for age 18+ 05/07/2024 05/07/2023, 04/24/2023, 10/24/2022, Additional history exists Colonoscopy through age 75 10/11/202710/10, 10/10/2022, 10/02/2017, Additional history exists Lipids for age 45-75 05/07/2028 05/07/2023, 04/11/2022, 04/01/2021, Additional history exists Hepatitis C screening for ag e 18-79 Completed 05/04/2013 Tdap Completed 11/04/2013 Zoster (shingles) series for age 50+ Completed 12/21/2018, 08/27/2018, 12/08/2012 Pneumococcal series for age 65+ Completed 04/05/2021, 03/23/2020, 02/16/2019 COVID-19 vaccine series Completed 04/24/20, 03/13/2022, 09/11/2021, Additional history exists Medical Devices Implanted Type Area Vascular Surgeon Device Identifier Shelf Expiration Date Model / Serial / Lot [id number] ne Matrix 6cc Bushnell Dbf Putty Dbm Implanted:Qty: 1 on 03/31/2017 by Lindy Kaisre MD at [facility] Explanted:at [facility] (Quantity not on file) N/A: Spine Medtronic Spine/Ortho 01/13/2019 [id number] / [id number] / [id number] ne 1-4mm 60cc Medtronic Fine Canclls Freeze Dried Implanted:Qty: 1 on 03/31/2017 by Lindy Kaiser MD at [facility] Explanted:at [facility] (Quantity not on file) N/A: Spine Medtronic Spine/Ortho 01/27/2022 [id number] / [id number] / Spacer Lmbr [id number] Zyston Convex Stra Plif - [id number] Implanted:Qty: 1 on 03/31/2017 by Lindy Kaiser MD at [facility] N/A: Spine Jori [employer]omet [id number]# / / [id number] Spacer Lmbr [id number] Zyston Convex Stra Plif - [id number] Implanted:Qty: 1 on 03/31/2017 by Lindy Kaiser MD at [facility] N/A: Spine [employer] [id number]# / / [id number] Screw Lmbr Post 6.5x50mm Vitality Va - [id number] Implanted:Qty: 2 on 03/31/2017 by Lindy Kaiser MD at [facility] N/A: Spine [employer]ori [employer]omet Spine [id number] 76# / / Screw Lmbr Post 6.5x45mm Vitality Va - [id number] Implanted:Qty: 4 on 03/31/2017 by Lindy Kaiser MD at [facility] N/A: Spine [employer] Spine [id number] 75# / / Set Screw Lmbr 5.5-6mm Vitality Shear Off - [id number] Implanted:Qty: 6 on 03/31/2017 by Lindy Kaiser MD at [facility] N/A: Spine [employer]ori [employer]omet Spine [id number] 01# / / Maximino Lmbr 70x5.5mm Vitality Cvd Titnm - [id number] Implanted:Qty: 2 on 03/31/2017 by Lindy Kaiser MD at [facility] N/A: Spine [employer]ori [employer] Spine [id number] 11# / / Procedures Procedure Name Priority Date/Time Associated Diagnosis Comments IGA Routine 07/06/2023 7:04 AM STRIP DEBURRER Elevated anti-tissue transglutaminase (tTG) IgA level H PYLORI ANTIGEN,STOOL Routine 10:15 AM STRIP DEBURRER Chronic GERD US ABDOMEN COMPLETE FRANSISCO 06/11/2023 8:18 AM STRIP DEBURRER Acute upper abdominal pain AMB CONSULT TO GASTROENTEROLOGY Routine 06/06/2023 7:11 PM STRIP DEBURRER Gastritis, presence of bleeding unspecified, unspecified chronicity, unspecified gastritis type CVL CORONARY ANGIOGRAM POSS PCI Routine 06/03/2023 10:28 AM STRIP DEBURRER Cardiovascular symptoms CREATININE STAT 06/03/2023 7:59 AM STRIP DEBURRER BUN STAT 06/03/2023 7:59 AM STRIP DEBURRER POTASSIUM STAT 06/03/2023 7:59 AM STRIP DEBURRER SODIUM STAT 06/03/2023 7:59 AM STRIP DEBURRER CBC W PLT NO DIFF STAT 06/03/2023 7:59 AM STRIP DEBURRER EKG 12 LEAD Preop 06/03/2023 7:40 AM STRIP DEBURRER LIPID PANEL W REFLEX MEASURED LDL Routine 05/07/2023 8:35 AM STRIP DEBURRER Pure hypercholesterolemia COLONOSCOPY 10/10/2022 7:47 AM CDT ANTI HCV Routine 05/04/2013 3:27 PM STRIP DEBURRER Need for hepatitis C screening test from Last 3 Months or Most Recently Relevant to Health Maintenance Results * (ABNORMAL) IGA (07/06/2023 7:04 AM STRIP DEBURRER) IGA 587.39(H) 84.50 - 499.00 mg/dL 07/07/2023 10:47 AM STRIP DEBURRER [facility] Blood BLOOD SPECIMEN / Unknown Venipuncture / Unknown 07/06/2023 7:04 AM STRIP DEBURRER 07/06/2023 7:04 AM STRIP DEBURRER Uma Carvalho MD CHEMISTRY [facility] [address] [place] [address], * H PYLORI ANTIGEN,STOOL (06/30/2023 10:15 AM STRIP DEBURRER) H PYLORI INTERPRETATION Negative Negative 07/01/2023 1:35 PM STRIP DEBURRER [facility] Comment:Indicates absence of H Pylori Stool antigen Stool STOOL SPECIMEN / Unknown Non-Blood / Unknown 06/30/2023 10:15 AM STRIP DEBURRER 06/30/2023 10:52 AM STRIP DEBURRER Narrative [facility] - 07/01/2023 1:35 PM STRIP DEBURRER The Liaison?? [place] H Pylori SA assay has not been evaluated in a pediatric population. Uma Carvalho MD MICROBIOLOGY [facility] [address] [place] [address], [place] * US ABDOMEN COMPLETE (06/11/2023 8:18 AM STRIP DEBURRER) Anatomical Region Laterality Modality Abdomen, LIVER, KIDNEYS, PANCREAS, GALLBLADDER, SPLEEN Ultrasound 06/11/2023 8:37 AM STRIP DEBURRER Impressions 06/11/2023 8:37 AM STRIP DEBURRER 1. Cholecystectomy. CBD and pancreas obscured by bowel gas. No dilation of the intrahepatic biliary tree or liver abnormality. 2. Otherwise negative abdominal ultrasound. No ascites. Dictated by Jaunis Melendez MD @ 06/11/2023 8:37:10 AM (Electronically Signed) Narrative 06/11/2023 8:37 AM STRIP DEBURRER For Patients: ??As a result of the Cures Act, medical imaging exams and procedure reports are released immediately into your electronic medical record. ??You may view this report before your referring provider. ??If you have questions, please contact your health care provider. INDICATION: Acute upper abdominal pain TECHNIQUE: Ultrasound abdomen complete. Sonographic images of the entire abdomen were obtained using penaloza-scale and color Doppler. COMPARISON: Ultrasound abdomen 10/20/2022 FINDINGS: Liver: Normal in size and echotexture. No masses. No intrahepatic biliary dilatation. Gallbladder: Surgically absent. Common bile duct: Obscured by bowel gas. Pancreas: Limited. Obscured by bowel gas. Spleen: Normal in size and appearance. Right kidney: 10.1 cm. Small 8 millimeter cortical cyst not seen on the previous ultrasound or CT. Otherwise normal echotexture and cortex. No masses, stones, or hydronephrosis. Left kidney: 11.6. cm. Normal echotexture and cortex. No masses, stones, or hydronephrosis. Vasculature: Proximal abdominal aorta and IVC are normal in caliber. Procedure Note Sundar Melendez MD - 06/11/2023 For Patients: As a result of the 21st Century Cures Act, medical imagingexams and procedure reports are released immediately into your electronicmedical record. You may view this report before your referring provider.If you have questions, please contact your health care provider. INDICATION: Acute upper abdominal pain TECHNIQUE: Ultrasound abdomen complete. Sonographic images of the entire abdomen wereobtained using penaloza-scale and color Doppler. COMPARISON: Ultrasound abdomen 10/20/2022 FINDINGS: Liver: Normal in size and echotexture. No masses. No intrahepatic biliarydilatation. Gallbladder: Surgically absent. Common bile duct: Obscured by bowel gas. Pancreas: Limited. Obscured by bowel gas. Spleen: Normal in size and appearance. Right kidney: 10.1 cm. Small 8 millimeter cortical cyst not seen on theprevious ultrasound or CT. Otherwise normal echotexture and cortex. Nomasses, stones, or hydronephrosis. Left kidney: 11.6. cm. Normal echotexture and cortex. No masses, stones,or hydronephrosis. Vasculature: Proximal abdominal aorta and IVC are normal in caliber. IMPRESSION: 1. Cholecystectomy. CBD and pancreas obscured by bowel gas. No dilation ofthe intrahepatic biliary tree or liver abnormality. 2. Otherwise negative abdominal ultrasound. No ascites. Dictated by Juanis Melendez MD @ 06/11/2023 8:37:10 AM (Electronically Signed) Uma Carvalho MD US * CVL CORONARY ANGIOGRAM POSS PCI (06/03/2023 10:28 AM STRIP DEBURRER) Anatomical Region Laterality Modality X-Ray Angiograph y, X-Ray Angiography 06/03/2023 10:2 8 AM STRIP DEBURRER Narrative Procedure Note Shannon Peres MD - 06/03/2023 8:08 PM CST DATE OF SERVICE: 06/03/2023 PREOPERATIVE DIAGNOSES: 1. Classic angina. 2. Positive nuclear medicine stress test. PROCEDURES: 1. Coronary arteriography. 2. Perclose groin closure. FINDINGS: Left main coronary artery is normal. Left anterior descending is a type 3 vessel and has a mild proximallesion. There is no significant obstruction evident within the leftanterior descending. The left circumflex is nondominant and normal. The right coronary artery is dominant and normal. SUMMARY FINDINGS: 1. Classic angina, positive nuclear medicine stress test. 2. No significant coronary disease. 3. May be helpful for consideration of microvascular evaluation in thecardiovascular laboratory if continued refractory angina is noted. 4. No complication. 5. Successful Perclose groin closure. Results are automatically released to your [employer] accountonce available, in compliance with federal regulations. This means thatyou may see your results before your provider has had a chance to reviewthem. Please allow 2-3 business days for your provider to comment on theresults. SHANNON PERES MD MRM/POO/SHERRELL VJID: [id number] TJID: [id number] cc: UMA CARVALHO MD Provider Referring CV IMAGING * (ABNORMAL) CBC with Platelets no Differential (06/03/2023 7:59 AM STRIP DEBURRER) [facility] WHITE BLOOD COUNT 6.6 4.5 - 11.0 thou/cu mm 06/03/2023 8:42 AM [email or web address] RED BLOOD COUNT 4.68 4.30 - 5.90 mil/cu mm 06/03/2023 8:42 AM [email or web address] HEMOGLOBIN 14.1 13.5 - 17.5 g/dL 06/03/2023 8:42 AM [email or web address] HEMATOCRIT 40.9 37.0 - 53.0 % 06/03/2023 8:42 AM [email or web address] MCV 87 80 - 100 fL 06/03/2023 8:42 AM [email or web address] MCH 30.1 26.0 - 34.0 pg 06/03/2023 8:42 AM [email or web address] MCHC 34.5 32.0 - 36.0 g/dL 06/03/2023 8:42 AM [email or web address] RDW 13.0 11.5 - 15.5 % 06/03/2023 8:42 AM [email or web address] PLATELET COUNT 131(L) 140 - 440 thou/cu mm 06/03/2023 8:42 AM STRIP DEBURRER [facility] MPV 10.7 6.5 - 11.0 fL 06/03/2023 8:42 AM STRIP DEBURRER [facility] NRBC 0.0 % 06/03/2023 8:42 AM STRIP DEBURRER [facility] ABS NRBC 0.0 thou /cu mm 06/03/2023 8:42 AM STRIP DEBURRER [facility] Blood BLOOD SPECIMEN / Unknown Venipuncture / Unknown 06/03/2023 7:59 AM STRIP DEBURRER 06/03/2023 8:11 AM STRIP DEBURRER Colton Mora MD HEMATOLOGY Performing Organization Address [facility]/ZIP Co de Phone Number [facility] [address] [place] [address], [place] * BUN (06/03/2023 7:59 AM STRIP DEBURRER) BUN 15 8 - 23 mg/dL 06/03/2023 8:45 AM STRIP DEBURRER [facility] Blood BLOOD SPECIMEN / Unknown Venipuncture / Unknown 06/03/2023 7:59 AM STRIP DEBURRER 06/03/2023 8:11 AM STRIP DEBURRER Colton Mora MD CHEMISTRY Performing Organization Address [facility]/ZIP Co de Phone Number [facility] [address] [place] [id number], [place] * Sodium (06/03/2023 7:59 AM STRIP DEBURRER) SODIUM 137 136 - 145 mmol/L 06/03/2023 8:45 AM STRIP DEBURRER [facility] Blood BLOOD SPECIMEN / Unknown Venipuncture / Unknown 06/03/2023 7:59 AM STRIP DEBURRER 06/03/2023 8:11 AM STRIP DEBURRER Colton Mora MD CHEMISTRY Performing Organization Address City/[facility]/ZIP Co de Phone Number [facility] [address] [place] [id number], [place] * Potassium (06/03/2023 7:59 AM STRIP DEBURRER) Pathologist [facility] POTASSIUM 4.8 3.5 - 5.1 mmol/L 06/03/2023 8:45 AM STRIP DEBURRER [facility] Blood BLOOD SPECIMEN / Unknown Venipuncture / Unknown 06/03/2023 7:59 AM STRIP DEBURRER 06/03/2023 8:11 AM STRIP DEBURRER Colton Mora MD CHEMISTRY [facility] [address] [place] [id number], * (ABNORMAL) Creatinine (06/03/2023 7:59 AM STRIP DEBURRER) [facility] eGFR 82(L) >90 mL/min/1.7 3m2 06/03/2023 8:45 AM STRIP DEBURRER [facility] Comment:As of 2021, eG FR is calculated by the CKD-EPI creatinine equation without race adjustment. ??eGFR can be influenced by muscle mass, exercise, and diet. ??The reported eGFR is an estimation only and is only applicable if the renal function is stable. CREATININE 0.99 0.70 - 1.20 mg/dL 06/03/2023 8:45 AM STRIP DEBURRER [facility] Blood BLOOD SPECIMEN / Unknown Venipuncture / Unknown 06/03/2023 7:59 AM STRIP DEBURRER 06/03/2023 8:11 AM STRIP DEBURRER Colton Mora MD CHEMISTRY [facility] [address] [place] [phone], [place] * EKG - In AM (06/03/2023 7:40 AM STRIP DEBURRER) Pathologist [facility] Interpretation Normal sinus rhythm Normal ECG When compared with ECG of 20-JUL-2015 08:48, No significant change was found BEYOND NOW Ventricular Rate 74 BPM BEYOND NOW Atrial Rate 74 BPM BEYOND NOW P-R Interval 168 ms BEYOND NOW QRS Duration 82 ms BEYOND NOW QT 366 ms BEYOND NOW QTc 406 ms BEYOND NOW P Boon 58 degrees BEYOND NOW R Boon 19 degrees BEYOND NOW T Boon 43 degrees BEYOND NOW 06/03/2023 7:40 AM STRIP DEBURRER 06/03/2023 5:33 PM STRIP DEBURRER Narrative BEYOND NOW - 06/03/2023 5:33 PM STRIP DEBURRER Test Indication: pre op Colton Mora MD EKG ORD Performing Organization Address [facility] Co de Phone Number BEYOND NOW [place], [place] * (ABNORMAL) LIPID PANEL W REFLEX MEASURED LDL (05/07/2023 8:35 AM STRIP DEBURRER) CHOLESTEROL,TOTAL 111 100 - 199 mg/dL 05/07/2023 2:33 PM STRIP [facility]ER [facility] [employer] [facility] Comment: Cholesterol, Total Reference Ranges Desirable <200 mg/dL Borderline 200-239 mg/dL High >=240 mg/dL TRIGLYCERIDES 75 <150 mg/dL 05/07/2023 2:33 PM STRIP DEBURRER [facility] HDL CHOLESTEROL 39(L) >40 mg/dL 2:33 PM STRIP DEBURRER [facility] NON-HDL CHOLESTEROL 72 <145 mg/dl 05/07/2023 2:33 PM STRIP DEBURRER [facility] CHOL/HDL RATIO 2.85 <4.50 05/07/2023 2:33 PM STRIP DEBUR[facility]ER [facility] LDL CHOLESTEROL 57 <=130 mg/dL 05/07/2023 2:33 PM STRIP DEBUR[facility]ER [facility] VLDL CHOLESTEROL 15 <=30 mg/dL 05/07/2023 2:33 PM STRIP DE[facility]ER [facility] PROVIDER ORDERED STATUS RANDOM 05/07/2023 2:33 PM STRIP [facility] [employer] [facility] Blood BLOOD SPECIMEN / Unknown Venipuncture / Unknown 05/07/2023 8:35 AM STRIP DEBURRER 05/07/2023 8:36 AM STRIP DEBURRER Uma Carvalho MD CHEMISTRY Performing Organization Address City/[facility]/ZIP Co de Phone Number [facility] [address] [place] [address], * COLONOSCOPY (10/10/2022 7:47 AM CDT) 10/10/2022 7:47 AM CDT Narrative Transcriptions Jesús Disla MD - 10/10/2022 8:36 AM CDT Patient Name: Indio Tsang Procedure Date: 10/10/2022 Gender: Male Date of : 1955 Admit Type: Outpatient Procedure: Colonoscopy Proceduralist: Jesús Disla MD , Elle Meeks (Nurse), Katarzyna Rosenberg (Nurse) Indications/Pre-Op Diagnosis: High risk colon cancer surveillance:Personal history of adenoma less than 10 mm in size, Last colonoscopy: September 2017 Medications: Fentanyl 100 micrograms IV, Midazolam 4 mgIV, The level of sedation administered wasmoderate Procedure Description: The patient had risks, benefits and alternatives explained to andgave informed consent. The patient had a stable cardiopulmonary status and judged an adequate candidate for conscious sedation. The endoscope [id number] was passed through the anus andadvanced to the cecum, identified by appendiceal orifice and ileocecal valve.The colonoscopy was performed without difficulty. The patient toleratedthe procedure well. The quality of the bowel preparation was good. The ileocecal valve, appendiceal orifice, and rectum were photographed. Complications: No immediate complications. Estimated Blood Loss & Specimen: Estimated blood loss: none. Specimen collected - None Findings: The perianal and digital rectal examinations were normal. The entire examined colon appeared normal. Impressions/Post-Op Diagnosis: - The entire examined colon is normal. - No specimens collected. Recommendation: - Patient has a contact number available for emergencies. The signsand symptoms of potential delayed complications were discussed with the patient. Return to normal activities tomorrow. Written discharge instructions were provided to the patient. - Resume previous diet. - Continue present medications. - Repeat colonoscopy in 5 years for surveillance. Moderate Sedation: A time out was performed before the procedure. Moderate (conscious) sedation was administered by the endoscopy nurse and supervised bythe endoscopist. The following parameters were monitored: oxygensaturation, heart rate, blood pressure, EKG, CO2, respiratory rate, adequacy of pulmonary ventilation and reponse to care. Please refer to the patient's medical record flowsheets and nursing notes for moderate sedation details. Total physician intraservice time was 18 minutes. Jesús Disla MD 10/10/2022 8:36:31 AM This report has been signed electronically. Note Initiated On: 10/10/2022 7:47 AM Procedure Code(s): --- Professional --- 83711, Colonoscopy, flexible; diagnostic, including collection of specimen(s) bybrushing or washing, when performed (separateprocedure) Diagnosis Code(s): --- Professional --- Z86.010, Personal history of colonicpolyps CPT copyright 2021 [employer]. All rights reserved. The codes documented in this report are preliminary and upon pct reviewmay be revised to meet current compliance requirements. Scope In: 8:12:44 AM Scope Withdrawal Time 0 hours 10 minutes 38 seconds Scope Out: 8:28:16 AM Jesús Disla MD PROCEDURE ORD * ANTI HCV [71187.2] (05/04/2013 3:27 PM STRIP DEBURRER) ANTI HCV Non-reacti ve [facility] Blood specimen (specimen) BLOOD SPECIMEN / Unknown 05/04/2013 3:27 PM STRIP DEBURRER 05/04/2013 3:21 PM STRIP DEBURRER Uma Carvalho MD SEND OUTS [facility] INTERNAL ZIP [address] [address] [place], [place] [id number] from Last 3 Months or Most Recently Relevant to Health Maintenance Advance Directives Documents on File Type Date Recorded Patient Biomedical Instrument Technician Expl anation Healthcare Directive 03/23/2017 5:50 PM * Full Code (Latest Code Status on File) Date Activated Date Inactivated Comments 06/03/2023 10:45 AM 06/03/2023 2:45 PM Question Answer Comments Code Status Discussion: Reviewed Preferences * Full Code Date Activated Date Inactivated Comments 03/31/2017 1:31 PM 04/02/2017 1:46 PM * Full Code Date Activated Date Inactivated Comments 03/31/2017 5:50 AM 03/31/2017 1:27 PM * Full Code Date Activated Date Inactivated Comments 08/02/2015 11:35 AM 08/02/2015 5:50 PM * Full Code Date Activated Date Inactivated Comments 11/23/2013 5:50 AM 11/24/2013 1:07 PM Care Teams Director [employer] Relationship Specialty Start Date End Date Uma Carvalho MD [address] [place] [address] PCP - General 08/27/05
--- NOTE | 2023-08-27 08:00 | NM_ITS ---
Patient: AYUSH COUGHLIN Facility:?[facility] RIS Patient ID:?[id number] Site Patient ID:?[id number]. Site :?1955 Study:?NM-Abdomen GASTRIC EMPTYING-08/27/2023 12:59:33 PM Ordering Physician:?DAVON MCCARTHY Final Report: Indication: Epigastric pain Technique: Nuclear medicine gastric emptying per protocol after the oral administration of 1.1 millicuries technetium 99 M sulfur colloid in egg meal. Comparison: None. Findings: Intermittent scintigraphic images obtained over 4 hours after the ingestion of the meal visually demonstrate normal gastric emptying. Geometric means: 1 hour: 15 percent. 2 hours: 44 percent. 4 hours: 96 percent. Impression: Normal gastric emptying. Dictated by Dileep Peters MD @ 08/27/2023 1:40:47 PM Signed by:?Dileep Peters MD @08/27/2023 1:40:47 PM (Electronic Signature)
== END 2023-08-27 07:45 | disposition home or self-care (01) ==
LOC: NM 07:46
PROVIDERS: PCP Family Medicine; Visit Provider Nurse Practitioner Family
DX: R10.13 Epigastric pain (principal); R68.81 Early satiety; K59.09 Other constipation
CPT/HCPCS: 78264; A9541

== ENCOUNTER 2024-02-22 07:42 | Outpatient (CLI) | payer MEDICARE, SELFPAY ==
--- OUTSIDE RECORDS SUMMARY | 2024-02-22 07:44 | XMS_ITS | Continuity of Care Document ---
Author Organization [facility] Address [address] [place] [address] Phone Care Team Providers Care Ammonium Nitrate Neutralizer Name Role Phone Zelalem Jules Unavailable Unavailable [...] Added Spine Disk Surgery/De compress Office/Outpatient Visit,New [facility] 2013 Advance Directives Directive Yes / No Effective Date File Name No Information Encounters Encounter Description Practice Location Reason(s) For Visit Diagnoses Date Provider Providers Copied on Encounter OFFICE/OUTPA TIENT VISIT EST Phone [facility], [address] [place] [address], [id number], [place] [phone] [facility] No Information 0 Zackary Masterson. [address] [place] [address], [place], [id number] , [place]. tel:[phone] Office/Outpa tient Visit,Est, Mod [facility], [address], [place], [place], [id number], [place] tel:[phone] [facility] Post Op - Normal Follow-upArthr odesis status 8 Meednnis Al [facility], [address] [place] [address], [place], [place], [id number] , [place]. tel:[phone] Office/Outpa tient Visit,Est, Mod [facility], [address] [place] [address], [id number], [place] tel:[phone] [facility] Spinal stenosis, lumbar region without neurogenic nicky September- 8 Mehbod Amir. [facility], [address], [place], [place], [id number] , [place]. tel: [phone] Office/Outpa tient Visit,Est, Mod [facility], [address], [place], [place], [id number], [place] tel: [phone] [facility] Spinal stenosis, lumbar region with neurogenic claudicationSp inal stenosis, lumbar region without neurogenic nicky Fe- 8 Eck[place] Zelalem. [address], [place], [place], [id number] , [place]. tel: [phone] [facility], [address], [place], [place], [id number], [place] tel:[phone] [facility] Encounter for other specified surgical aftercare 8 Mehbod Amir. [facility], [address], [place], [place], [id number] , [place]. tel: [phone] [facility], [address], [place], [place], [id number], [place] tel:[phone] [facility] No Information 7 [place]th Zelalem. [address] [place] [address], [place], [place], [id number] , [place]. tel: [phone] [facility], [address], [place], [place], [id number], [place] tel:[phone] [facility] No Information 7 Mehbod Amir. [facility], [address], [place], [place], [id number] , [place]. tel: [phone] Pre Op Office/Outpa tient Visit, [facility], [address], [place], [place], [id number], [place] tel:[phone] [facility] Spinal stenosis, lumbar region without neurogenic claudication Nov 7 Mehbod Amir. [facility], [address], [place], [place], [id number] , [place]. tel: [phone] Office/Outpa tient Visit,Est, Mod [facility], [address], [place], [place], [id number], [place] tel:[phone] [facility] Spinal stenosis, lumbar region 0-201 7 Mehbod Amir. [facility], [address], [place], [place], [id number] , [place]. tel: [phone] Office/Outpa tient Visit,Est, Mod [facility], [address], [place], [place], [id number], [place] tel:[phone] [facility] Obesity 5201 4 Mehbod Amir. [facility], [address] [place] [address] [address], [place], [place], [id number] , [place]. tel: [phone] Office/Outpa tient Visit,Est, Low Z [facility], [facility] [address] [place] [address], [address], [place] tel:[phone] [facility] Back Pain (chief complaint) No Information 9 4 Mehbod Amir. [facility], [address] [place] [address] [address], [place], [place], [id number] , [place]. tel:[phone] Referring Provider: Handy Glynn, Hira [facility] [address] , [place], [address]. tel:[phone] Z [facility], [address] [place] [address], [address], [place] [phone] [facility] No Information 4 Mehbod Amir. [facility], [address] [place] [address] [address], [place], [place], [id number] , [place]. [phone] Referring Provider: Johnnie ChristiansonPortAuthority Technologies [facility] [address], [place], [address]. tel:[phone] Z [facility], [address] [place], [place] [address] [place] [address] [place], [address], [place] tel:[phone] [facility] No Information 4 Mehbod Amir. [facility], [address], [place], [place], [id number] , [place]. [phone] Referring Provider: Handy Glynn, [facility] Louis [facility], [place], [address]. tel:[phone] Office/Outpa tient Visit,New, Low Z [facility], [address] [facility] [address], [place], [address], [place] tel:[phone] [facility] [place] 4 Mehbod Amir. [facility], [address], [place], [place], [id number] , [place]. [phone] Family History Family Member Type Diagnosis Age At Onset Problem (finding) Payers Payer name Insurance type Covered constitution party ID Lyndsay rodarte(s) Noekody Mendoza Work Comp [id number] [facility] [employer] [id number] Social History Type Description Quantity Date Captured Comments Sex Male Smoking Status No Information Chief Complaint And Reason For Visit No Information Reason For Referral Reason For Referral No Information History Of Present Illness Encounter Date Complaint History Of Prese nt Illness Back Pain Functional Status Date Functional Assessmen t No Information Instructions Date Instruction Additional Infor steveion Weight management: I nstructed to return to [...]
--- OUTSIDE RECORDS SUMMARY | 2024-02-22 07:45 | XMS_ITS | Clinical Summary ---
Author Organization [facility] Address [place], [place] [address] Care Team Providers Care Packaging Mechanic Name Role Phone Uma Carvalho MD Primary Care Provider [phone] Allergies Active Allergy Reactions Criticality Noted Date Comments Venom-Honey Bee Edema 01/07/2017 Cephalexin Confusion,GI Upset Low 02/15/2020 Brain fog Penicillins Anxiety 06/15/2007 GI Upset, And jittery Medications Medication Sig Dispensed Refills Start Date End Date Status loratadine (CLARITIN) 10 mg tabletIndications:Bee sting, accidental or unintentional, initial encounter Take 10 mg by mouth once daily if needed for Allergy Symptoms. 0 12/30/19 17 Active aspirin chewable 81 mg chewable tablet Take 81 mg by mouth once daily with a meal. Active Cholecalciferol, Vitamin D3, (VITAMIN D-3) 2,000 unit tablet Take 2,000 Units by mouth once daily. Active acetaminophen (TYLENOL) 325 mg tabletIndications:Acute post-operative pain Take 2 tablets by mouth every 4 hours if needed (Mild pain). Max acetaminophen dose: 4000mg in 24 hrs. 50 tablet 04/02/20 17 Active celecoxib (CELEBREX) 200 mg capsuleIndications:Displ acement of lumbar intervertebral disc without myelopathy Take 1 Capsule (200 mg) by mouth once daily with a meal. 90 Capsule 3 04/24/20 23 Active EPINEPHrine (EpiPen) 0.3 mg/0.3 mL auto-injectorIndications :Bee sting reaction, accidental or unintentional, initial encounter Inject 0.3 mg intramuscular one time if needed for Allergic Reaction. 1 Each 2 04/24/20 23 Active gabapentin (NEURONTIN) 300 mg capsuleIndications:Lumba r radicular pain,Restless legs syndrome (RLS) Take 1 capsule by mouth at bedtime as needed . 90 Capsule 3 04/24/20 23 Active metoprolol succinate (Toprol XL) 25 mg Sustained-Release tabletIndications:Abnorm al stress test Take 1 Tablet (25 mg) by mouth once daily. 90 Tablet 3 05/07/20 Active Additional Information Patient taking differently:25 mg Oral DAILY,On hold per cardiology, Reported on 08/05/2023 isosorbide mononitrate (IMDUR) 30 mg extended release tablet 24 HourIndications:Abnormal stress test Take 1 Tablet (30 mg) by mouth once daily. 90 Tablet 3 05/07/20 Active Additional Information Patient taking differently:30 mg [...] by mouth once daily. 90 Tablet 1 06/30/19 24 Active magnesium 250 mg tabIndications:Cardiovas cular symptoms Take 1 Tablet (250 mg) by mouth once daily. 09/04/19 24 Active atorvastatin (LIPITOR) 10 mg tabletIndications:Pure hypercholesterolemia Take 1 Tablet (10 mg) by mouth once daily. 90 Tablet 01/28/20 24 Active atorvastatin (LIPITOR) 10 mg tabletIndications:Pure hypercholesterolemia Take 1 Tablet (10 mg) by mouth once daily. 90 Tablet 3 04/24/20 23 024 Discontin ued(*Avai lability/ Formulary change/Co st of medicatio n) Active Problems Problem Noted Date Diagnosed Date Multiple fractures of ribs 10/24/202210/24 S/P total knee arthroplasty 10/24/2022 06/0 01/2023 Status post total hip replacement, left 11/09/19 22 10/24/2022 Cerebellar infarct 10/29/2018 Overview (04/05/2021): Incidentally found 2 right 2 mm cerebellar infarcts on MRI 10/2018. Adenomatous colon polyp 10/05/2017 Overview (10/05/2017): Colonoscopy 09/2017 polyp, repeat in 5 years Gastroesophageal reflux disease 02/04/2016 Hydrocele in adult 08/15/2015 Lumbar radicular pain 03/08/2015 Osteoarthritis of left glenohumeral joint 2014 Lumbar spinal stenosis 03/02/2013 L3-4 and L4-5 disk herniation 10/21/2006 Pure hypercholesterolemia 09/25/2006 Resolved Problems Problem Noted Date Diagnosed Date Resolved Date Blood clotting tendency 03/23/202003/18 Encounters Date Type Department Care Team Description 01/25/2024 Refill [facility] [address] [place] [address] Uma Carvalho MD Refill Request (Atorvastatin) from Last 3 Months Immunizations Name Administration Dates Next Due AMB Influenza, IIV3 (Age >=3 years)(Flu Clinic Only) 03/02/2013,02/16/2012,03/14/2011,2009,03/17/2008 AMB Influenza, IIV4 PF (=>6 mos Flulaval,Fluzone Fluarix)(Flu Clinic Only) 02/24/2018,02/04/2017,02/08/2016 COVID-19 VACCINE SPIKEVAX (M ODERNA 50MCG/0.5ML) 12YO+ PFS 04/24/2023 COVID-19 vaccine (Jamie-J& J) PF, MDV 07/28/2020 COVID-19 vaccine (ProxlyBio NTech 30mcg/0.3mL) 12YO+ BIVALENT PF, MDV 03/13/2022 COVID-19 vaccine ([employer]-Bio NTech 30mcg/0.3mL) 12YO+ DAYANA-SUCROSE PF, MDV 09/11/2021 [...] 36 Heart Disease Paternal Grandfather o f MS at 67 Relation Name Status Comments Father Mother Paternal Grandfather Social History Tobacco Use Types Packs/Day Years Used Date Smoking Tobacco: Never Smokeless Tobacco: Never Tobacco Cessation:Counseling Given: Yes Alcohol Use Standard Drinks/Week Comments Yes 0 (1 standard drink = 0.6 oz pur e alcohol) very little PHQ-2 Answer Date Recorded PHQ-2 TOTAL SCORE 0 04/24/2023 Social Connections Answer Date Recorded Frequency of Communication with Friends and Fami ly Not on file 09/30/2023 Alcohol Use Answer Date Recorded How often [...] on file Sexual Orientation Not on file Obstetrics History Last Filed Vital Signs Vital Sign Reading Time Taken Comments Blood Pressure 122/66 09/04/2023 10:22 AM CDT Pulse 72 09/04/2023 10:22 AM CDT Temperature 36.6 ??C (97.9 ??F) 06/12/2023 12:[address] Respiratory Rate 18 06/03/2023 12:04 PM [facility] Oxygen Saturation 98% 09/04/2023 10:22 AM CDT Inhaled Oxygen Concentration - - Weight 98.9 kg (218 lb 1.6 oz) 09/04/2023 10:22 AM CDT Height 170.2 cm (5' 7.01) 09/04/2023 10:22 AM C DT Body Mass Index 34.15 09/04/2023 10:22 AM CDT Plan of Treatment Upcoming Encounters Date Type Department Care Team (Late st Contact Info) Description 03/25/2024 8:50 AM [facility] Preop Visit [facility] [address] [place] [address] Uma Carvalho MD [address] [place] [address] Health Maintenance Due Date Last Done Comments Tetanus booster 11/05/2023 11/04/2013, 10/02/2004 Influenza for age 65+ 01/17/2024 03/05/2023 , 03/13/2022, 04/05/2021, Additional history exists Medicare Wellness for age 65+ 04/24/2024, 04/16/2022, 04/05/2021 Depression screening for age 12+ 04/26/2024 04/26/2023, 04/24/2023, 04/16/2022, Additional history exists BMI (ht and wt on same day) for age 18+ 09/03/2024 09/04/2023, 05/07/2023, 04/24/2023, Additional history exists Colonoscopy through age 75 10/11/202710/10, 10/10/2022, 10/02/2017, Additional history exists Lipids for age 45-75 05/07/2028 05/07/2023, 04/11/2022, 04/01/2021, Additional history exists Hepatitis C screening for ag e 18-79 Completed 05/04/2013 Tdap Completed 11/04/2013 Zoster (shingles) series for age 50+ Completed 12/21/2018, 08/27/2018, 12/08/2012 Pneumococcal series for age 65+ Completed 04/05/2021, 03/23/2020, 02/16/2019 COVID-19 vaccine series Completed 02/08/20, 04/24/2023, 03/13/2022, Additional history exists Medical Devices Implanted Type Area Digital Media Director Device Identifier Shelf Expiration Date Model / Serial / Lot [id number] Matrix 6cc [place] Dbf Putty Dbm Implanted:Qty: 1 on 03/31/2017 by Lindy Kaiser MD at [facility] Explanted:at [facility] (Quantity not on file) N/A: Spine Medtronic Spine/Ortho 01/13/2019 [id number] / [id number] / [id number] ne 1-4mm 60cc Medtronic Fine Canclls Freeze Dried Implanted:Qty: 1 on 03/31/2017 by Lindy Kaiser MD at [facility] Explanted:at [facility] (Quantity not on file) N/A: Spine Medtronic Spine/Ortho 01/27/2022 [id number] / [id number] / Spacer Lmbr [id number] [place] Convex Stra Plif - [id number] Implanted:Qty: 1 on 03/31/2017 by Lindy Kaiser MD at [facility] N/A: Spine [employer] [id number]# / / [id number] Spacer Lmbr [id number] [place] Convex Stra Plif - [id number] Implanted:Qty: 1 on 03/31/2017 by Lindy Kaiser MD at [facility] N/A: Spine [employer] [id number]# / / [id number] Screw Lmbr Post 6.5x50mm Vitality Va - [id number] Implanted:Qty: 2 on 03/31/2017 by Lindy Kaiser MD at [facility] N/A: Spine [employer] Spine [id number] 76# / / Screw Lmbr Post 6.5x45mm Vitality Va - [id number] Implanted:Qty: 4 on 03/31/2017 by Lindy Kaiser MD at [facility] N/A: Spine [employer] Spine [id number] 75# / / Set Screw Lmbr 5.5-6mm Vitality Shear Off - [id number] Implanted:Qty: 6 on 03/31/2017 by Lindy Kaiser MD at [facility] N/A: Spine [employer] Spine [id number] 01# / / Maximino Lmbr 70x5.5mm Vitality Cvd Titnm - [id number] Implanted:Qty: 2 on 03/31/2017 by Lindy Kaiser MD at [facility] N/A: Spine [employer] Spine [id number] 11# / / Procedures Procedure Name Priority Date/Time Associated Diagnosis Comments LIPID PANEL W REFLEX MEASURED LDL Routine 05/07/2023 8:35 AM [facility] Pure hypercholesterolemia COLONOSCOPY 10/10/2022 7:47 AM CDT ANTI HCV Routine 05/04/2013 3:27 PM [facility] Need for hepatitis C screening test from Last 3 Months or Most Recently Relevant to Health Maintenance Results * (ABNORMAL) LIPID PANEL W REFLEX MEASURED LDL (05/07/2023 8:35 AM [facility]) CHOLESTEROL,TOTAL 111 100 - 199 mg/dL 05/07/2023 2:33 PM ASSEM[facility] Comment: Cholesterol, Total Reference Ranges Desirable <200 mg/dL Borderline 200-239 mg/dL High >=240 mg/dL TRIGLYCERIDES 75 <150 mg/dL 05/07/2023 2:33 PM [facility]SEM[facility] HDL CHOLESTEROL 39(L) >40 mg/dL 2:33 PM [facility] NON-HDL CHOLESTEROL 72 <145 mg/dl 05/07/2023 2:33 PM [facility] CHOL/HDL RATIO 2.85 <4.50 05/07/2023 2:33 PM [facility] LDL CHOLESTEROL 57 <=130 mg/dL 05/07/2023 2:33 PM [facility] VLDL CHOLESTEROL 15 <=30 mg/dL 05/07/2023 2:33 PM [facility] PROVIDER ORDERED STATUS RANDOM 05/07/2023 2:33 PM [facility] Blood BLOOD SPECIMEN / Unknown Venipuncture / Unknown 05/07/2023 8:35 AM [facility] 05/07/2023 8:36 AM [facility] Uma Carvalho MD CHEMISTRY [facility] [address] [place] [address], * COLONOSCOPY (10/10/2022 7:47 AM CDT) 10/10/2022 [...] adequate candidate for conscious sedation. The endoscope [id number] was passed through the anus andadvanced to [...] 7:47 AM Procedure Code(s): --- Professional --- 18862, Colonoscopy, flexible; diagnostic, including collection of specimen(s) bybrushing or washing, when performed (separateprocedure) Diagnosis Code(s): --- Professional --- Z86.010, Personal history of colonicpolyps CPT copyright 2021 [employer]. All rights reserved. The codes documented in this report are preliminary and upon musical instrument mechanic reviewmay be revised to meet current compliance requirements. Scope In: 8:12:44 AM Scope Withdrawal Time 0 hours 10 minutes 38 seconds Scope Out: 8:28:16 AM Jesús Disla MD PROCEDURE ORD * ANTI HCV [74742.2] (05/04/2013 3:27 PM [facility]) ANTI HCV Non-reacti ve [facility] Blood specimen (specimen) BLOOD SPECIMEN / Unknown 05/04/2013 3:27 PM [facility] 05/04/2013 3:21 PM [facility] Uma Carvalho MD SEND OUTS [facility] INTERNAL ZIP [phone] [place] [phone] from Last 3 Months or Most Recently Relevant to Health Maintenance Advance Directives Documents on File Type Date Recorded Patient Fish Drier Expl anation Healthcare Directive 03/23/2017 5:50 PM [...] 5:50 AM 11/24/2013 1:07 PM Care Teams Packaging Mechanic Relationship Specialty Start Date End Date [place] [address] [facility] - General 08/27/05
== END 2024-02-22 07:43 | disposition home or self-care (01) ==
LOC: CT 07:42
PROVIDERS: PCP Family Medicine; Visit Provider Orthopaedic Surgery Sports Medicine
DX: M19.012 Primary osteoarthritis, left shoulder (principal); Z01.818 Encounter for other preprocedural examination
CPT/HCPCS: 73200

== ENCOUNTER 2024-03-22 16:19 | Outpatient (RCR) | payer MEDICARE, SELFPAY ==
--- NOTE | 2024-03-24 11:28 | OT.OPOE ---
OT Outpatient Ortho Eval OT Outpatient Ortho Eval* Start: 03/22/24 18:01 Freq: Status: Active Protocol: Document 03/22/24 18:01 NURY (Rec: 03/22/24 18:01 [facility] [place] [id number]) E-signed By Yessi Navarro OTR/Jose, CLT OT OP Ortho Eval Details Complexity Complexity Low Insurance Information Insurance Information Blue Cross/Blue Shield, Medicare B Outpatient History/Precautions Current Condition/Medical Diagnosis Referring Provider Angela Medical Diagnoses M19.012 Osteoarthritis of left shoulder Treatment Diagnosis Z74.0 reduced mobility Date of Onset unknow, surgery scheduled for 03/30 Other Precautions Will have coffee cup listing restrictions and no AROM of shoulder post op, sling for 4- 6 wks. Medical Conditions Metal Implants,Arthritis Medical/Functional History Medical History Reviewed Yes Prior Level of Function/Mobility I with all ADLs/IADLs. 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 Pain Assessment Pain Pain Yes Pain Comments Pain disrupting sleep and daily activities. OT Problems Problems Problems Decreased Strength,Decreased Range of Motion,Decreased Dexterity,Pain,Decreased Coordination,Lifting,Gripping Other Problems Opening Containers,Dressing, Sleeping Patient Potential Excellent Assessment Assessment Assessment Pt is a 69 yr old male referred to outpatient occupational therapy for a L TSA pre-op. Surgery is scheduled for 03/30/24. Pt will have assist from a variety of family members, lives in an accessible home and has a necessary DME/AE. Pt was educated on post op exercises, as well as hospital progression prior to DC. Pt was also educated on one handed ADL techniques, icing/ polar care, and sling management. All questions were answered to Pt?s satisfaction . Occupational Therapy Treatment Plan - OP Potential Rehabilitation Potential Excellent Set Goals Goals Set with Patient Yes Goals Goals Within one visit the patient will.... 1. be educated on sling management, one handed ADL techniques. GOAL MET 2. be able to verbalized and demonstrate post op exercises. GOAL MET Treatment Plan Treatment Plan Evaluation,Self Care/Home Management,Education Expected Frequency Comments One time OT eval and tx. Certification Certification Statement I Certify That: Therapy Services Provided, Therapy Plan Established, Therapy Plan Reviewed Certification Information Clinic ID # [id number] Initial Certification Date 03/22/24 Recertification Due Date 05/21/24 Provider Signature Required Yes Provider Signature Shows Agreement With POC & Medical Necessity Physician NPI Number Write NPI# Here Physician Comment/Change Comment or Changes Physician Signature & Date Requested Please Sign/Date Here
== END 2024-04-01 12:12 | disposition home or self-care (01) ==
PROVIDERS: PCP Family Medicine; Visit Provider Orthopaedic Surgery Sports Medicine
DX: M19.012 Primary osteoarthritis, left shoulder (principal); Z96.612 Presence of left artificial shoulder joint; Z74.09 Other reduced mobility; Z51.89 Encounter for other specified aftercare
CPT/HCPCS: 97165; 97535

== ENCOUNTER 2024-03-30 07:15 | Day surgery (SDC) | payer MEDICARE, SELFPAY ==
[2024-03-30] VITALS (23 sets, daily range): BP systolic 81–151; BP diastolic 40–104; PULSE 44–90; RESP 14–16; TEMP 36.1–36.6; O2SAT 91–99; BMI 35.0
--- OUTSIDE RECORDS SUMMARY | 2024-03-30 07:19 | XMS_ITS | Clinical Summary ---
Author Organization [facility] Address [place], [place] [address] Care Team Providers Care Emr Analyst Name Role Phone Uma Carvalho MD Primary Care Provider [phone] Allergies Active Allergy Reactions Criticality Noted Date [...] mouth once daily. 90 Tablet 3 05/07/20 23 Active Additional Information Patient taking differently:25 mg Oral DAILY,On hold per cardiology, Reported on 08/05/2023 famotidine (Pepcid) 20 mg tablet Take 20 mg by mouth 2 times daily if needed for Heartburn or GI Upset. Active pantoprazole (PROTONIX) 40 mg delayed-release tabletIndications:Chroni c GERD Take 1 Tablet (40 mg) by mouth once daily. 90 Tablet 1 06/30/19 24 Active magnesium 250 mg tabIndications:Cardiovas cular symptoms Take 1 Tablet (250 mg) by mouth once daily. 09/04/19 24 Active atorvastatin (LIPITOR) 10 mg tabletIndications:Pure hypercholesterolemia Take 1 Tablet (10 mg) by mouth once daily. 90 Tablet 01/28/20 24 Active benzonatate (TESSALON) 100 mg capsuleIndications:Cough , unspecified type Take 1-2 Capsules (100-200 mg) by mouth 3 times daily if needed for Cough. 21 Capsule 03/23/20 24 Active polyethylene glycoL (Miralax) 17 gram/scoop powder Mix 1 scoop in liquid then take by mouth once daily if needed for Constipation. Active codeine-guaiFENesin 10-100 mg/5 mL liquidIndications:Acute cough Take 5-10 mL by mouth before bedtime. 100 mL 03/25/20 24 Active isosorbide mononitrate (IMDUR) 30 mg extended release tablet 24 HourIndications:Abnormal stress test Take 1 Tablet (30 mg) by mouth once daily. 90 Tablet 3 05/07/20 23 024 Discontin ued(*Cassandra ent states no longer taking) psyllium husk, with sugar, (Metamucil Free) 3 gram/7 gram powd Mix in liquid then take by mouth. 024 Discontin ued(*Cassandra ent states no longer taking) Active Problems Problem Noted Date Diagnosed Date Back injury 03/25/2024 Overview (03/25/2024): Work related. Multiple fractures of ribs 10/24/202210/24 S/P total [...] Encounters Date Type Department Care Team Description 03/25/2024 10:00 AM SUB ACUTE CARE NURSE Ancillary Procedure [facility] [address] [facility] [place] [address] Arrived 03/25/2024 8:50 AM SUB ACUTE CARE NURSE Preop Visit [address] [facility] [place] [address] Uma Carvalho MD Preoperative Exam (Left shoulder replacement 03/30/2024) 03/25/2024 Telephone [facility] [address] [facility] [place] [address] Uma Carvalho MD Results 03/25/2024 Telephone [facility] [address] [facility] [place] [address] Uma Carvalho MD Lower Back Pain 03/25/2024 Travel 03/23/2024 8:45 AM SUB ACUTE CARE NURSE Office Visit [address] [place] [address] Jesica Loredo MD Cough (lasting bout a week, cough medicine, taking Delsym, Having shoulder surgery hoping to be cleared by then, no fevers /) 03/23/2024 Travel 01/25/2024 Refill [facility] [address] [facility] [place] [address] Uma Carvalho MD Refill Request (Atorvastatin) from Last 3 Months Immunizations Name Administration Dates Next Due AMB Influenza, IIV3 (Age >=3 years)(Flu Clinic Only) 03/02/2013,02/16/2012,03/14/2011,2009,03/17/2008 AMB Influenza, IIV4 PF (=>6 mos Flulaval,Fluzone Fluarix)(Flu Clinic Only) 02/24/2018,02/04/2017,02/08/2016 COVID-19 VACCINE SPIKEVAX (M ODERNA 50MCG/0.5ML) 12YO+ PFS 04/24/2023 COVID-19 vaccine (VHX-J& J) PF, MDV 07/28/2020 COVID-19 vaccine (Pricelock NTech 30mcg/0.3mL) 12YO+ BIVALENT PF, MDV 03/13/2022 COVID-19 vaccine (Keystone DentalBio NTech 30mcg/0.3mL) 12YO+ DAYANA-SUCROSE PF, MDV 09/11/2021 Influenza A (H1N1), Inactiva sheron (Age >=3 Years) 03/28/2009 Influenza Virus, Unspecified 02/16/2019, 03/02/2013,02/16/2012,2010,03/14/2010,03/17/2008,03/24/2007,1 05/28/2005,03/11/2005,03/14/2003 Influenza, High-dose Inactivated 02/01/2024 Influenza, IIV3 (Age 6-35 mos) 03/24/2007 Influenza, [...] 36 Heart Disease Paternal Grandfather o f [place] at 67 Relation Name Status Comments Father Mother Paternal Grandfather Social History Tobacco Use Types Packs/Day Years Used Date Smoking Tobacco: Never Smokeless Tobacco: Never Tobacco Cessation:Counseling Given: Yes Alcohol Use Standard Drinks/Week Comments Yes 0 (1 standard drink = 0.6 oz pur e alcohol) very little PHQ-2 Answer Date Recorded PHQ-2 TOTAL SCORE 0 04/24/2023 Social Connections Answer Date Recorded Do you often feel lonely or isolated from those around you? 0 03/23/2024 Alcohol Use Answer Date Recorded How often do you have a drink containing alcohol ? 2 07/29/2021 How many drinks containing a lcohol do you have on a typical day when you are drinking? 0 07/29/2021 How often do you have five or more drinks on one occasion? 0 07/29/2021 Financial Resource Strain Answer Date R ecorded Difficulty of Paying Living Expenses 3 03/23/2024 Difficulty of Paying Living Expenses Not on file 03/23/2024 Food Insecurity Answer Date Recorded Do you worry your food will run out before you are able to buy more? 1 03/23/2024 Transportation Needs Answer Date Record ed Does lack of transportation keep you from medica l appointments? 1 03/23/2024 Does lack of transportation keep you from work, meetings or getting things that you need? 1 03/23/2024 Housing Stability Answer Date Recorded What is your housing situation today? 1 03/23/2024 Sex and Gender Information Value Date Recorded Sex Assigned at Not on file Gender Identity Not on file Sexual Orientation Not on file Obstetrics History Last Filed Vital Signs Vital Sign Reading Time Taken Comments Blood Pressure 126/81 03/25/2024 8:56 AM SUB ACUTE CARE NURSE Pulse 78 03/25/2024 8:56 AM SUB ACUTE CARE NURSE Temperature 36.7 ??C (98.1 ??F) 03/25/2024 8:56 AM CS T Respiratory Rate 18 06/03/2023 12:04 PM SUB ACUTE CARE NURSE Oxygen Saturation 98% 03/25/2024 8:56 AM SUB ACUTE CARE NURSE Inhaled Oxygen Concentration - - Weight 98.4 kg (217 lb) 03/25/2024 8:56 AM SUB ACUTE CARE NURSE Height 170 cm (5' 6.93) 03/25/2024 8:56 AM SUB ACUTE CARE NURSE Body Mass Index 34.06 03/25/2024 8:56 AM SUB ACUTE CARE NURSE Plan of Treatment Health Maintenance Due Date Last Done Comments Tetanus booster 11/05/2023 11/04/2013, 10/02/2004 Medicare Wellness for age 65+ 04/24/2024, 04/16/2022, 04/05/2021 Depression screening for age 12+ 04/26/2024 04/26/2023, 04/24/2023, 04/16/2022, Additional history exists BMI (ht and wt on same day) for age 18+ 03/25/2025 03/25/2024, 09/04/2023, 05/07/2023, Additional history exists Colonoscopy through age 75 10/11/202710/10, 10/10/2022, 10/02/2017, Additional history exists Lipids for age 45-75 05/07/2028 05/07/2023, 04/11/2022, 04/01/2021, Additional history exists Hepatitis C screening for ag e 18-79 Completed 05/04/2013 Tdap Completed 11/04/2013 Zoster (shingles) series for age 50+ Completed 12/21/2018, 08/27/2018, 12/08/2012 Pneumococcal series for age 65+ Completed 04/05/2021, 03/23/2020, 02/16/2019 Influenza for age 65+ Completed 02/01/2024 , 03/05/2023, 03/13/2022, Additional history exists COVID-19 vaccine series Completed 02/08/20, 04/24/2023, 03/13/2022, Additional history exists Medical Devices Implanted Type Area Management Expert Device Identifier Shelf Expiration Date Model / Serial / Lot [id number] ne Matrix 6cc Breezy Dbf Putty Dbm Implanted:Qty: 1 on 03/31/2017 by Lindy Kaiser MD at [facility] Explanted:at [facility] (Quantity not on file) N/A: Spine Medtronic Spine/Ortho 01/13/2019 [id number]# / [id number] / [id number] ne 1-4mm 60cc Medtronic Fine Canclls Freeze Dried Implanted:Qty: 1 on 03/31/2017 by Lindy Kaiser MD at [facility] Explanted:at [facility] (Quantity not on file) N/A: Spine Medtronic Spine/Ortho 01/27/2022 [id number] / [id number] / Spacer Lmbr [id number] Zyston Convex Stra Plif - [id number] Implanted:Qty: 1 on 03/31/2017 by Lindy Kaiser MD at [facility] N/A: Spine Jori [employer]omet [id number]# / / [id number] Spacer Lmbr [id number] Zyston Convex Stra Plif - [id number] Implanted:Qty: 1 on 03/31/2017 by Lindy Kaiser MD at [facility] N/A: Spine [employer] [id number]# / / [id number] Screw Lmbr Post 6.5x50mm Vitality Va - [id number] Implanted:Qty: 2 on 03/31/2017 by Lindy Kaiser MD at [facility] N/A: Spine [employer] Spine 07.38168.0 76# / / Screw Lmbr Post 6.5x45mm Vitality Va - [id number] Implanted:Qty: 4 on 03/31/2017 by Lindy Kaiser MD at [facility] N/A: Spine [employer] Spine 07.06717.0 75# / / Set Screw Lmbr 5.5-6mm Vitality Shear Off - [id number] Implanted:Qty: 6 on 03/31/2017 by Lindy Kaiser MD at [facility] N/A: Spine [employer] Spine .[id number] 01# / / Maximino Lmbr 70x5.5mm Vitality Cvd Titnm - [id number] Implanted:Qty: 2 on 03/31/2017 by Lindy Kaiser MD at [facility] N/A: Spine [employer]ori [employer]omet Spine [id number] 11# / / Procedures Procedure Name Priority Date/Time Associated Diagnosis Comments XR CHEST 2 VIEWS PA AND LATERAL Routine 03/25/2024 10:09 AM SUB ACUTE CARE NURSE Acute cough HEMOGLOBIN Routine 03/25/2024 9:59 AM SUB ACUTE CARE NURSE Preoperative general physical examination B PERTUSSIS B PARAPERTUSSIS PCR NON BLOOD ([facility]) Routine 03/23/2024 9:27 AM SUB ACUTE CARE NURSE Cough, unspecified type COVID-19 MOLECULAR Routine 03/23/2024 9: 03 AM SUB ACUTE CARE NURSE Cough, unspecified type LIPID PANEL W REFLEX MEASURED LDL Routine 05/07/2023 8:35 AM SUB ACUTE CARE NURSE Pure hypercholesterolemia COLONOSCOPY 10/10/2022 7:47 AM CDT ANTI HCV Routine 05/04/2013 3:27 PM SUB ACUTE CARE NURSE Need for hepatitis C screening test from Last 3 Months or Most Recently Relevant to Health Maintenance Results * XR CHEST 2 VIEWS PA AND LATERAL (03/25/2024 10:09 AM SUB ACUTE CARE NURSE) Anatomical Region Laterality Modality CHEST, THORAX, Lung, HEART Compu sheron Radiography 03/25/2024 1:33 PM SUB ACUTE CARE NURSE Impressions 03/25/2024 1:33 PM SUB ACUTE CARE NURSE 1. There is an 8 mm nodular density in the right lateral lung base with no definite correlate on the lateral view. This is most likely due to a prominent nipple silhouette. Followup radiograph with nipple markers or evaluation with chest CT are recommended to exclude a pulmonary nodule. Dictated by Fawad Mathias MD @ 03/25/2024 1:33:03 PM Dictated by: Fawad Mathias MD @ 03/25/2024 13:33:08 (Electronically Signed) Narrative 03/25/2024 1:33 PM SUB ACUTE CARE NURSE For Patients: ??As a result of the Cures Act, medical imaging exams and procedure reports are released immediately into your electronic medical record. ??You may view this report before your referring provider. ??If you have questions, please contact your health care provider. INDICATION: Acute cough, cough TECHNIQUE: Chest radiograph 2 views COMPARISON: None FINDINGS: Mediastinum: The mediastinum is normal in appearance. The heart silhouette is normal in size and morphology. Lung: There is an 8 mm nodular density in the right lateral lung base with no definite correlate on the lateral view. No sign of pleural effusion seen. No pneumothorax is identified. Bone and Soft tissue: Joint bodies are present in the shoulder bilaterally in the subcoracoid recess. Procedure Note Fawad Mathias MD - 03/25/2024 For Patients: As a result of the Cures Act, medical imagingexams and procedure reports are released immediately into your electronicmedical record. You may view this report before your referring provider.If you have questions, please contact your health care provider. INDICATION: Acute cough, cough TECHNIQUE: Chest radiograph 2 views COMPARISON: None FINDINGS: Mediastinum: The mediastinum is normal in appearance. The heart silhouetteis normal in size and morphology. Lung: There is an 8 mm nodular density in the right lateral lung base withno definite correlate on the lateral view. No sign of pleural effusionseen. No pneumothorax is identified. Bone and Soft tissue: Joint bodies are present in the shoulder bilaterallyin the subcoracoid recess. IMPRESSION: 1. There is an 8 mm nodular density in the right lateral lung base with nodefinite correlate on the lateral view. This is most likely due to aprominent nipple silhouette. Followup radiograph with nipple markers orevaluation with chest CT are recommended to exclude a pulmonary nodule. Dictated by Fawad Mathias MD @ 03/25/2024 1:33:03 PM Dictated by: Fawad Mathias MD @ 03/25/2024 13:33:08 (Electronically Signed) Uma Carvalho MD GENERAL IMAGING * HEMOGLOBIN (03/25/2024 9:59 AM SUB ACUTE CARE NURSE) Pathologist [facility] HEMOGLOBIN 14.1 13.2 - 17.1 g/dL [facility] Blood BLOOD SPECIMEN / Unknown 03/25/2024 9:59 AM SUB ACUTE CARE NURSE 03/25/2024 9:59 AM SUB ACUTE CARE NURSE Uma Carvalho MD HEMATOLOGY [employer] [facility] [address] [place] [address], [facility] [address] [place] [address] * B PERTUSSIS B PARAPERTUSSIS PCR NON BLOOD ([facility]) (03/23/2024 9:27 AM SUB ACUTE CARE NURSE) Pathologist [facility] B PERTUSSIS DNA Negative Negative 1:09 PM SUB ACUTE CARE NURSE [facility]) B PARAPERTUSS DNA Negative Negative 03/26/2024 1:09 PM SUB ACUTE CARE NURSE [facility] ([facility]) Nasopharyngeal SPECIMEN FROM NASOPHARYNGEAL STRUCTURE / Unknown Non-Blood / Unknown 03/23/2024 9:27 AM SUB ACUTE CARE NURSE 03/23/2024 9:35 AM SUB ACUTE CARE NURSE Narrative [facility] ([facility]) - 03/26/2024 1:09 PM SUB ACUTE CARE NURSE Test(s) 648884-Qyefgmgzdh pertussis DNA; 239818- Bordetella parapertussis DNA was developed and its performance characteristics determined by [facility]. It has not been cleared or approved by the Food and Drug Administration. Performed at: ??[address] ??[id number] Chip Mucker: Mikaela Mccoy MD, Phone: ??[phone] Jesica Loredo MD MICROBIOLOGY [facility] ([facility]) [facility] [place] [address], * COVID-19 MOLECULAR (03/23/2024 9:03 AM SUB ACUTE CARE NURSE) Pathologist [facility] COVID 19 [place] MOLECULAR Negative Negative 03/23/2024 6:35 PM SUB ACUTE CARE NURSE [facility]- NTRAL LABORATORY TESTING LABORATORY [facility] Laboratory 03/23/2024 6:35 PM SUB ACUTE CARE NURSE [facility] NTRAL LABOR[facility]ORY Comment:Specimen submitted t o [facility] for testing. Other SPECIMEN FROM NASAL FOSSAE / Unknown Non-Blood / Unknown 03/23/2024 9:03 AM SUB ACUTE CARE NURSE 03/23/2024 9:03 AM SUB ACUTE CARE NURSE Narrative [facility] - 03/23/2024 6:35 PM SUB ACUTE CARE NURSE All PCR tests are subject to false negative result due to variability in viral load and collection technique. A negative result does not rule out a SARS-CoV-2 infection. Clinical correlation required. Jesica Loredo MD MICROBIOLOGY [facility] [address] [place] [address], * (ABNORMAL) LIPID PANEL W REFLEX MEASURED LDL (05/07/2023 8:35 AM SUB ACUTE CARE NURSE) Pathologist [facility] CHOLESTEROL,TOTAL 111 100 - 199 mg/dL 05/07/2023 2:33 PM SUB ACUTE CARE NURSE [facility] TRAL LABORATORY Comment: Cholesterol, Total Reference Ranges Desirable <200 mg/dL Borderline 200-239 mg/dL High >=240 mg/dL TRIGLYCERIDES 75 <150 mg/dL 05/07/2023 2:33 PM SUB ACUTE CARE NURSE [facility] TRAL LABOR[facility]ORY HDL CHOLESTEROL 39(L) >40 mg/dL 2:33 PM SUB ACUTE CARE NURSE [facility] TR[facility] NON-HDL CHOLESTEROL 72 <145 mg/dl 05/07/2023 2:33 PM SUB ACUTE CARE NURSE [facility] TRAL LABOR[facility]ORY CHOL/HDL RATIO 2.85 <4.50 05/07/2023 2:33 PM SUB ACUTE CARE NURSE [facility] TRAL LABORATORY LDL CHOLESTEROL 57 <=130 mg/dL 05/07/2023 2:33 PM SUB ACUTE CARE NURSE [facility] TRA LABORATORY VLDL CHOLESTEROL 15 <=30 mg/dL 05/07/2023 2:33 PM SUB ACUTE CARE NURSE [facility] TRA LABORATORY PROVIDER ORDERED STATUS RANDOM 05/07/2023 2:33 PM SUB ACUTE CARE NURSE [facility] Blood BLOOD SPECIMEN / Unknown Venipuncture / Unknown 05/07/2023 8:35 AM SUB ACUTE CARE NURSE 05/07/2023 8:36 AM SUB ACUTE CARE NURSE Uma Carvalho MD CHEMISTRY [facility] [address] [place] [address], * COLONOSCOPY (10/10/2022 7:47 AM CDT) 10/10/2022 [...] adequate candidate for conscious sedation. The endoscope [id number] was passed through the anus andadvanced to [...] 7:47 AM Procedure Code(s): --- Professional --- 81827, Colonoscopy, flexible; diagnostic, including collection of specimen(s) bybrushing or washing, when performed (separateprocedure) Diagnosis Code(s): --- Professional --- Z86.010, Personal history of colonicpolyps CPT copyright 2021 [employer]. All rights reserved. The codes documented in this report are preliminary and upon oracle adf developer reviewmay be revised to meet current compliance requirements. Scope In: 8:12:44 AM Scope Withdrawal Time 0 hours 10 minutes 38 seconds Scope Out: 8:28:16 AM Jesús Disla MD PROCEDURE ORD * ANTI HCV [63186.2] (05/04/2013 3:27 PM SUB ACUTE CARE NURSE) ANTI HCV Non-reacti ve [facility] Blood specimen (specimen) BLOOD SPECIMEN / Unknown 05/04/2013 3:27 PM SUB ACUTE CARE NURSE 05/04/2013 3:21 PM SUB ACUTE CARE NURSE Uma Carvalho MD SEND OUTS [facility] INTERNAL ZIP [address] [place] [id number] from Last 3 Months or Most Recently Relevant to Health Maintenance Advance Directives Documents on File Type Date Recorded Patient Nutritional Chemist Expl anation Healthcare Directive 03/23/2017 5:50 PM [...] 5:50 AM 11/24/2013 1:07 PM Care Teams Emr Analyst Relationship Specialty Start Date End Date [place] [address] [address] PCP - General 08/27/05
--- NOTE | 2024-03-30 07:30 | W.PM.H&PU ---
History & Physical Update History & Physical Update H&P Reviewed and patient assessed: No changes noted
[2024-03-30] MEDS: SODIUM CHLORIDE 0.9 % (FLUSH) 10 ML SYRINGE IVF ×2 (08:30→15:27)
[2024-03-30] MEDS: ACETAMINOPHEN 500 MG TABLET 1000 MG PO (08:42)
[2024-03-30] MEDS: OXYCODONE (CR) 10 MG TAB.ER.12H PO (08:42)
[2024-03-30] MEDS: LACTATED RINGERS 1000 ML 1,000 ML 100 ML IV (08:45)
[2024-03-30] MEDS: fentaNYL 100 MCG/2 ML inj IVP (08:46)
[2024-03-30] MEDS: MIDAZOLAM HCL 1 MG/ML inj IVP (08:46)
--- NOTE | 2024-03-30 08:57 | SUR.PREOP ---
TIME?OUT:?0845 PT/RN/MDA?VERIFICATION?OF?SURGICAL?SITE,?PROCEDURE,?AND?CONSENT OBTAINED?PRIOR?TO?INVASIVE?PROCEDURE. all in agreement.
[2024-03-30] MEDS: CEFAZOLIN 2 GM in 0.9 % SODIUM CHLORIDE Mini-bag 100 ML IVPB (09:17)
[2024-03-30] MEDS: TRANEXAMIC ACID 100 MG/ML INJ 1000 MG IV (09:19)
--- NOTE | 2024-03-30 09:23 | P.NB_ITS ---
Nerve Block Nerve Block Time Seen by Provider: 08:48 Date Seen: 03/30/24 Type of block requested by surgeon for post-operative analgesia: supraclavicular Side: left Time out performed: Yes Verification of patient name: Yes Verification of date of : Yes Site marking: site marked Name of person performing procedure: Prasanna Continuous monitoring Was continuous monitoring of O2 sat, B/P, hospital monitor, recorded every 15 minutes?: Yes Procedure Checklist: sterile prep, needles and gloves Ultrasound guided. Images saved: Yes Medications given in 5ml increments after negative aspiration: Ropivicaine %: 0.5 mL: 20 Needle gauge: 22 Precedex (mcg): 25 Patient tolerated procedure well: Yes Block Charges Block Charge (with Pro Fee): Brachial Plexus Use of Ultrasound Machine for Block: Yes- US Guidance/pain block
--- NOTE | 2024-03-30 09:23 | W.ANESCHARGE ---
Anesthesia Charges Start Date/Time Anesthesia Start Date: 03/30/24 Anesthesia Start Time: 08:52 Stop Date/Time Anesthesia Stop Date: 03/30/24 Anesthesia Stop Time: 11:14 Summary Extremes of Age - Over 70 or under 1: MDA
--- NOTE | 2024-03-30 10:45 | PM.ORPRC ---
Procedure Note Date of procedure: 03/30/24 Procedure: PREOPERATIVE DIAGNOSIS: 1. Left shoulder osteoarthrosis, primary, severe with poor rotator quality/integrity 2. Left long head of the biceps tendinopathy and tenosynovitis POSTOPERATIVE DIAGNOSIS: 1. Left shoulder osteoarthrosis,[ primary, severe with poor cuff tissue quality 2. Left long head of the biceps tendinopathy and tenosynovitis PROCEDURE: 1. Left reverse shoulder arthroplasty. 2. Left long head of biceps open tenodesis SURGEON: Edy Nguyen MD. REGISTERED DENTAL ASSISTANT RDA: Modesto FRIEDMAN - Of note, a skilled assistant to the director was critical for this case to aid in patient positioning, tissue retraction, limb manipulation/positioning, retraction for glenoid exposure, which was challenging, awareness and protection of critical structures, and closure. ANESTHESIA: General plus supraclavicular block EBL: 100 ml IMPLANTS: DJ0 surgical Altivate humeral stem size 14 standard shell, short with P2 porous coating vitamin E neutral poly small socket insert RSP glenoid base plate P2 porous coating with 3 perimeter locking screws 32 neutral glenosphere with retaining screw COMPLICATIONS: None evident INDICATIONS: The patient is a pleasant 69-year-old male who has experienced severe left shoulder pain and difficulty with use. Workup included imaging which revealed severe osteoarthrosis along with concern for rotator cuff quality. Physical exam was consistent with associated pain. Given the deformity, the dysfunction, and the pain, and failure of nonoperative management, recommendation was made for surgery. DESCRIPTION OF PROCEDURE: Following a thorough discussion of risks, benefits, and alternatives, consent was obtained and the left shoulder was marked. The patient was brought to the operating room and placed supine on the operating table. Induction of anesthesia was undertaken. 2 g IV Ancef and 1 g tranexamic acid was administered within 1 hr of incision preoperatively. Appropriate time-out was performed identifying proper patient, site, and procedure. The operative extremity was prepped and draped in the appropriate sterile fashion using ChloraPrep after the patient was positioned in the lazy beach chair position with head in neutral alignment and all bony prominences well padded. A longitudinal incision was made for deltopectoral approach. Deltoid was retracted laterally. Cephalic vein was identified and retracted laterally as well. Vein was spared/protected throughout the case. The clavipectoral fascia was identified and divided longitudinally staying lateral to the conjoined tendon / coracoid. The conjoined tendon was protected with a blunt Hohmann. The long head of the biceps tendon was identified and the bicipital sheath released. The upper 1 cm of the pectoralis major was also released from its insertion. The long head of the biceps was tenodesed to the pectoralis major tendon. The remaining proximal tendon tissue was excised. The rotator cuff was inspected and found to have good integrity with the subscapularis but fair integrity with a supraspinatus], and a decision for a reverse shoulder arthroplasty was confirmed. The long head of biceps, of note, was significant flattened, thickened, with abundant tenosynovitis. A subscapularis cuff of tissue was left via tenotomy for later repair with the remaining subscapularis released in a subperiosteal fashion with the Bovie. This was tagged for later repair. The 3 sisters were cauterized. The upper subscapularis was released from the capsule with a curved Christopher scissors towards the glenoid. The inferior subscapularis was divided from the capsular tissue on its caudal surface with particular caution for the axillary nerve. This was palpated anterior to the subscapularis both prior to and near the finish of the case. Inferior humeral head osteophytes were excised with caution taken throughout the case with regards to the axillary nerve. The humerus was dislocated, and humeral head cut completed. Then a protector plate was applied. We turned our attention to the glenoid. The humerus was retracted posteriorly. The subscap was protected anteriorly and the labrum/long head biceps origin was excised circumferentially. The capsule was released along the anterior and inferior portions of the glenoid cautiously with a Lovell elevator being careful not to penetrate deep. The glenoid had appropriate exposure, and was prepared with the cannulated system with a target of approximately 5-10? of inferior tilt and neutral anteversion (patient had 7-8? of retroversion initially). Utilizing the match Point 3D printed guide, the guide pin was placed. The 3D printed jig removed and after placing the guide pin, the tap was placed followed by the glenoid reaming. The real base plate was opened, and inserted, and excellent compression/purchase was achieved with the central screw. Peripheral screws were then drilled, measured, and placed. The glenosphere was then placed consistent with the preoperative plan utilizing the above noted glenosphere. After securing the glenosphere with the locking, torque limited screw, attention was turned back to the humerus. A canal finder was placed followed by various reamers by hand. The real humeral stem was then opened and inserted with excellent metaphyseal fit and stability. Trial poly was placed and the shoulder reduced. Excellent reduction and stability achieved with appropriate tension on the conjoined tendon. At this stage, trial implants were removed, and the real implants inserted and the shoulder reduced. A 3 minute Betadine soak was performed followed by a thorough irrigation with normal saline. Subscapularis was repaired with #1 PDS to the cuff of tissue on the lesser tuberosity. Excellent reapproximation of tissue achieved. Hemostasis was found to be appropriate. The deltopectoral interval was reapproximated with 0 Vicryl, subcutaneous and subcuticular closure was then performed with number 2-0 Vicryl and 4-0 Monocryl, respectively. A skilled assistant to the director was critical for this case to aid in patient positioning, tissue retraction, limb manipulation/positioning, retraction for glenoid exposure, which was challenging, awareness and protection of critical structures, and closure. PLAN: 1. Sling at all times for the operative upper extremity. 2. AROM of elbow, forearm, wrist, and digits as tolerated. 3. PT/OT consults for education and assistance. 4. Social consult for discharge planning. 5. 23 hr perioperative antibiotics. 6. Early ambulation, and SCDs for DVT prophylaxis. 7. Admit to the hospital for the above 8. Analgesics p.r.n.
--- NOTE | 2024-03-30 11:10 | CRLHL7_ITS ---
For Patients: As a result of the Cures Act, medical imaging exams and procedure reports are released immediately into your electronic medical record. You may view this report before your referring provider. If you have questions, please contact your health care provider. Indication: Total shoulder replacement Technique: Two views left shoulder Findings/Impression: Hardware from a left total shoulder arthroplasty is in satisfactory position. Bone alignment is normal. No sign of acute fracture. Postop changes are within normal limits. Dictated by Chapincito Olson MD @ 03/30/2024 12:09:32 PM (Electronically Signed)
--- NOTE | 2024-03-30 11:13 | P.ANES_ITS ---
Anesthesia Charges Start Date/Time Anesthesia Start Date: 03/30/24 Anesthesia Start Time: 08:52 Stop Date/Time Anesthesia Stop Date: 03/30/24 Anesthesia Stop Time: 11:14 Summary Extremes of Age - Over 70 or under 1: IT RISK AND ASSURANCE MANAGER
[2024-03-30] MEDS: METOCLOPRAMIDE HCL 5 MG/ML INJ 10 MG IVP (11:20)
[2024-03-30] MEDS: 0.9 % SODIUM CHLORIDE 500 ML 500 ML IV (12:15)
--- NOTE | 2024-03-30 13:23 | SUR.PHASEII ---
pt doing better. Awake, pt states he feels better than before. Not much of an appetite. Tolerating water/Sprite/Pedialyte and bites of toast. Denies pain in shoulder.
[2024-03-30] MEDS: ONDANSETRON 2 MG/ML inj 4 MG IVP (15:26)
--- NOTE | 2024-03-30 15:28 | SUR.PHASEII ---
OT here to work with pt. Pt reporting feeling lousy, stomach ache and nauseated. Zofran given to patient.
--- NOTE | 2024-03-30 17:04 | SUR.PHASEII ---
Pt ambulated around unit x2. Belching and walking. Pt reports feeling nauseated. Communicated this is side effect of anesthesia. OT cleared pt for discharge. VSS, denies pain. okay to patient home. Dr. Nguyen in to see pt at 1545. Pt wheelchair out to car with staff to .
--- NOTE | 2024-03-30 17:06 | SUR.PHASEII ---
Encouraged pt to drink Gatorade and water at home and eat small meals.
== END 2024-03-30 17:00 | disposition home or self-care (01) ==
LOC: OR 07:17
PROVIDERS: PCP Family Medicine; Visit Provider Orthopaedic Surgery Sports Medicine
PROC: 0RRJ0JZ Replacement of Right Shoulder Joint with Synthetic Substitute, Open Approach (ICD-10-PCS; CPT 23472; principal; 2024-03-30 09:15)
DX: M19.012 Primary osteoarthritis, left shoulder (principal); M75.22 Bicipital tendinitis, left shoulder; G89.18 Other acute postprocedural pain; K21.9 Gastro-esophageal reflux disease without esophagitis
CPT/HCPCS: 23472; 23430; 01638; 64415; 73030; 76942; 97110; 97165; 97535; 99100; A9270; C1713; C1776; J0690; J1100; J2250; J2371; J2405; J2704; J2710; J2765; J2795; J3010; J7030; J7120; L3670

== ENCOUNTER 2025-01-24 08:44 | Outpatient (CLI) | payer MEDICARE, SELFPAY | END 2025-01-24 08:45 | disposition home or self-care (01) | LOC: CT 08:45 | PROVIDERS: PCP Family Medicine; Visit Provider Orthopaedic Surgery Sports Medicine | DX: M19.011 Primary osteoarthritis, right shoulder (principal); Z01.818 Encounter for other preprocedural examination | CPT/HCPCS: 73200 ==

== ENCOUNTER 2025-03-22 06:58 | Day surgery (SDC) | payer MEDICARE, SELFPAY ==
[2025-03-22] VITALS (15 sets, daily range): BP systolic 120–153; BP diastolic 69–94; PULSE 60–91; RESP 16–18; TEMP 35.9–36.8; O2SAT 88–100; BMI 35.2
--- NOTE | 2025-03-22 07:33 | W.PM.H&PU ---
History & Physical Update History & Physical Update H&P Reviewed and patient assessed: No changes noted
[2025-03-22] MEDS: LACTATED RINGERS 1000 ML 1,000 ML 100 ML IV ×2 (07:50→10:14)
[2025-03-22] MEDS: SODIUM CHLORIDE 0.9 % (FLUSH) 10 ML SYRINGE IVF (07:50)
[2025-03-22] MEDS: ACETAMINOPHEN 500 MG TABLET 1000 MG PO (08:20)
[2025-03-22] MEDS: OXYCODONE (CR) 10 MG TAB.ER.12H PO (08:20)
--- NOTE | 2025-03-22 08:31 | SUR.PREOP ---
TIME?OUT:?0830 PT/RN/MDA?VERIFICATION?OF?SURGICAL?SITE,?PROCEDURE,?AND?CONSENT OBTAINED?PRIOR?TO?INVASIVE?PROCEDURE.
[2025-03-22] MEDS: MIDAZOLAM HCL 1 MG/ML inj IVP (08:35)
[2025-03-22] MEDS: TRANEXAMIC ACID 100 MG/ML INJ 1000 MG IV (09:36)
--- NOTE | 2025-03-22 09:58 | SUR.OPER ---
PATIENT QUESTIONS ANSWERED SATISFACTORILY PREOPERATIVELY. PATIENT BROUGHT TO OR #3 PER CART FOLLOWING THE BLOCK. Patient positioned supine on OR #3 bed for the intubation.? Perioperative team wrapped the?left arm in a neutral position on the pt. abdomen with the drawsheet.? Right arm elevated on an IV pole in a padded strap. Final approval of positioning by surgeon.
--- NOTE | 2025-03-22 10:03 | CRLHL7_ITS ---
For Patients: As a result of the Cures Act, medical imaging exams and procedure reports are released immediately into your electronic medical record. You may view this report before your referring provider. If you have questions, please contact your health care provider. Indication: Postop surgery. Technique: Right shoulder 3 views. Comparison: Right shoulder CT 01/24/2025, right shoulder radiographs 01/20/2025. Findings/Impression: Bones/joint spaces: Interval placement of reverse right total shoulder arthroplasty. No evidence of hardware loosening or complication. No inappropriate foreign bodies. No periprosthetic fractures. No worrisome osseous lesions. Prominent subacromial spur. Soft tissues: Unremarkable. Other: Visualized portions of the thorax are normal. Dictated by Zelalem Alaniz MD @ 03/22/2025 5:02:04 PM (Electronically Signed)
--- NOTE | 2025-03-22 10:40 | P.NB_ITS ---
Nerve Block Nerve Block Time Seen by Provider: 08:30 Date Seen: 03/22/25 Type of block requested by surgeon for post-operative analgesia: supraclavicular Side: right Time out performed: Yes Verification of patient name: Yes Verification of date of : Yes Site marking: site marked Name of person performing procedure: Prasanna Continuous monitoring Was continuous monitoring of O2 sat, B/P, compliance monitor, recorded every 15 minutes?: Yes Procedure Checklist: sterile prep, needles and gloves Ultrasound guided. Images saved: Yes Medications given in 5ml increments after negative aspiration: Ropivicaine %: 0.5 mL: 20 Needle gauge: 22 Precedex (mcg): 25 Patient tolerated procedure well: Yes Block Charges Block Charge (with Pro Fee): Brachial Plexus Use of Ultrasound Machine for Block: Yes- US Guidance/pain block
--- NOTE | 2025-03-22 10:41 | P.ANES_ITS ---
Anesthesia Charges Start Date/Time Anesthesia Start Date: 03/22/25 Anesthesia Start Time: 09:12 Stop Date/Time Anesthesia Stop Date: 03/22/25 Anesthesia Stop Time: 12:11 Summary Extremes of Age - Over 70 or under 1: MDA Coding CPT Codes CPT Codes: ANESTH SHOULDER REPLACEMENT - 73610 ([id number]) P3 - PATIENT W/SEVERE SYS DISEASE, QK - CLIENT SERVICES ASSISTANT 2-4 CNCRNT ANES PROC, QX - VA UNDERWRITER SVC W/ MD MED DIRECTION Additional Codes: Summary - Extremes of Age - Over 70 or under 1: MDA ([id number])
--- NOTE | 2025-03-22 10:41 | W.ANESCHARGE ---
Anesthesia Charges Start Date/Time Anesthesia Start Date: 03/22/25 Anesthesia Start Time: 09:12 Stop Date/Time Anesthesia Stop Date: 03/22/25 Anesthesia Stop Time: 12:11 Summary Extremes of Age - Over 70 or under 1: MDA Coding CPT Codes CPT Codes: ANESTH SHOULDER REPLACEMENT - 32420 ([id number]) P3 - PATIENT W/SEVERE SYS DISEASE, QK - VENEER GLUE JOINTER FEEDBACK 2-4 CNCRNT ANES PROC, QX - STRETCH PRESS OPERATOR SVC W/ MD MED DIRECTION Additional Codes: Summary - Extremes of Age - Over 70 or under 1: MDA ([id number])
--- NOTE | 2025-03-22 11:42 | PM.ORPRC ---
Procedure Note Date of procedure: 03/22/25 Procedure: PREOPERATIVE DIAGNOSIS: 1. Right shoulder osteoarthrosis, primary, severe POSTOPERATIVE DIAGNOSIS: 1. Right shoulder osteoarthrosis, primary, severe with fair to poor cuff tissue quality 2. Right long head of the biceps tendinopathy and tenosynovitis PROCEDURE: 1. Right reverse shoulder arthroplasty. 2. Right long head of biceps open tenodesis SURGEON: Edy Nguyen MD. AUDIO VISUAL PROJECT MANAGER: Modesto Miller OPA - Of note, a skilled molding line assistant was critical for this case to aid in patient positioning, tissue retraction, limb manipulation/positioning, retraction for glenoid exposure, which was challenging, awareness and protection of critical structures, and closure. ANESTHESIA: General plus supraclavicular block EBL: 300 ml IMPLANTS: DJ0 surgical Altivate humeral stem size 10 standard shell, short with P2 porous coating vitamin E neutral poly small socket insert RSP glenoid base plate P2 porous coating with 3 perimeter locking screws 32 neutral glenosphere with retaining screw COMPLICATIONS: None evident INDICATIONS: The patient is a pleasant 70-year-old male who has experienced severe right shoulder pain and difficulty with use. Workup included imaging which revealed severe osteoarthrosis along with concern for rotator cuff quality. Physical exam was consistent with associated pain. Given the deformity, the dysfunction, and the pain, and failure of nonoperative management, recommendation was made for surgery. DESCRIPTION OF PROCEDURE: Following a thorough discussion of risks, benefits, and alternatives, consent was obtained and the left shoulder was marked. The patient was brought to the operating room and placed supine on the operating table. Induction of anesthesia was undertaken. 2 g IV Ancef and 1 g tranexamic acid was administered within 1 hr of incision preoperatively. Appropriate time-out was performed identifying proper patient, site, and procedure. The operative extremity was prepped and draped in the appropriate sterile fashion using ChloraPrep after the patient was positioned in the lazy beach chair position with head in neutral alignment and all bony prominences well padded. A longitudinal incision was made for deltopectoral approach. Deltoid was retracted laterally. Cephalic vein was identified and retracted laterally as well. Vein required ligation during the procedure due to a rent in the vein. The clavipectoral fascia was identified and divided longitudinally staying lateral to the conjoined tendon / coracoid. The conjoined tendon was protected with a blunt Hohmann. The long head of the biceps tendon was identified and the bicipital sheath released. The upper 1/4 of the pectoralis major was also released from its insertion. The long head of the biceps was tenodesed to the pectoralis major tendon. The remaining proximal tendon tissue was excised. The rotator cuff was inspected and found to have good integrity with the subscapularis but fair integrity with a supraspinatus], and a decision for a reverse shoulder arthroplasty was confirmed. The long head of biceps, of note, was significant flattened, thickened, even had calcifications within the tendon sheath, but also was found to have abundant tenosynovitis. A subscapularis cuff of tissue was left via tenotomy for later repair with the remaining subscapularis released in a subperiosteal fashion with the Bovie. This was tagged for later repair. The 3 sisters were cauterized. The upper subscapularis was released from the capsule with a curved Christopher scissors towards the glenoid. The inferior subscapularis was divided from the capsular tissue on its caudal surface with particular caution for the axillary nerve. This was palpated anterior to the subscapularis both prior to and near the finish of the case. Inferior humeral head osteophytes were excised with caution taken throughout the case with regards to the axillary nerve. The humerus was dislocated, and humeral head cut completed. Then a protector plate was applied. We turned our attention to the glenoid. The humerus was retracted posteriorly. The subscap was protected anteriorly and the labrum/long head biceps origin was excised circumferentially. The capsule was released along the anterior and inferior portions of the glenoid cautiously with a Lovell elevator being careful not to penetrate deep. The glenoid had appropriate exposure, and was prepared with the cannulated system with a target of approximately 5-10? of inferior tilt and neutral anteversion (patient had 7 ? of retroversion initially). Utilizing the match Point 3D printed guide, the guide pin was placed. The 3D printed jig removed and after placing the guide pin, the tap was placed followed by the glenoid reaming. The real base plate was opened, and inserted, and excellent compression/purchase was achieved with the central screw. Peripheral screws were then drilled, measured, and placed. The glenosphere was then placed consistent with the preoperative plan utilizing the above noted glenosphere. After securing the glenosphere with the locking, torque limited screw, attention was turned back to the humerus. A canal finder was placed followed by various reamers by hand. The real humeral stem was then opened and inserted with excellent metaphyseal fit and stability. Trial poly was placed and the shoulder reduced. Excellent reduction and stability achieved with appropriate tension on the conjoined tendon. At this stage, trial implants were removed, and the real implants inserted and the shoulder reduced. A 3 minute Betadine soak was performed followed by a thorough irrigation with normal saline. Subscapularis was repaired with #1 PDS to the cuff of tissue on the lesser tuberosity. Excellent reapproximation of tissue achieved. Hemostasis was found to be appropriate. The deltopectoral interval was reapproximated with 0 Vicryl, subcutaneous and subcuticular closure was then performed with number 2-0 Vicryl and 4-0 Monocryl, respectively. A skilled molding line assistant was critical for this case to aid in patient positioning, tissue retraction, limb manipulation/positioning, retraction for glenoid exposure, which was challenging, awareness and protection of critical structures, and closure. PLAN: 1. Sling at all times for the operative upper extremity. 2. AROM of elbow, forearm, wrist, and digits as tolerated. 3. PT/OT consults for education and assistance. 4. Social consult for discharge planning. 5. 23 hr perioperative antibiotics. 6. Early ambulation, and SCDs for DVT prophylaxis. 7. Admit to the hospital for the above 8. Analgesics p.r.n.
--- NOTE | 2025-03-22 12:11 | P.ANES_ITS ---
Anesthesia Charges Start Date/Time Anesthesia Start Date: 03/22/25 Anesthesia Start Time: 09:12 Stop Date/Time Anesthesia Stop Date: 03/22/25 Summary Extremes of Age - Over 70 or under 1: PIERCER OPERATOR Coding CPT Codes CPT Codes: ANESTH SHOULDER REPLACEMENT - 75162 ([id number]) P3 - PATIENT W/SEVERE SYS DISEASE, QK - ROLLING UP MACHINE OPERATOR 2-4 CNCRNT ANES PROC, QX - PIERCER OPERATOR SVC W/ MD MED DIRECTION Additional Codes: Summary - Extremes of Age - Over 70 or under 1: PIERCER OPERATOR ([id number])
--- NOTE | 2025-03-22 12:11 | W.ANESCHARGE ---
Anesthesia Charges Start Date/Time Anesthesia Start Date: 03/22/25 Anesthesia Start Time: 09:12 Stop Date/Time Anesthesia Stop Date: 03/22/25 Summary Extremes of Age - Over 70 or under 1: SALES AGENT FINANCIAL REPORT SERVICE Coding CPT Codes CPT Codes: ANESTH SHOULDER REPLACEMENT - 14714 ([id number]) P3 - PATIENT W/SEVERE SYS DISEASE, QK - CARTOGRAPHIC DESIGNER 2-4 CNCRNT ANES PROC, QX - SALES AGENT FINANCIAL REPORT SERVICE SVC W/ MD MED DIRECTION Additional Codes: Summary - Extremes of Age - Over 70 or under 1: SALES AGENT FINANCIAL REPORT SERVICE ([id number])
[2025-03-22] MEDS: ONDANSETRON 2 MG/ML inj 4 MG IVP (13:39)
[2025-03-22] MEDS: PROCHLORPERAZINE 5 MG/ML VIAL IVP (15:48)
== END 2025-03-22 16:50 | disposition home or self-care (01) ==
LOC: OR 06:59
PROVIDERS: PCP Family Medicine; Visit Provider Orthopaedic Surgery Sports Medicine
PROC: 0RRJ0JZ Replacement of Right Shoulder Joint with Synthetic Substitute, Open Approach (ICD-10-PCS; CPT 23472; principal; 2025-03-22 09:00)
DX: M19.011 Primary osteoarthritis, right shoulder (principal); M75.21 Bicipital tendinitis, right shoulder; G89.18 Other acute postprocedural pain; K21.9 Gastro-esophageal reflux disease without esophagitis
CPT/HCPCS: 23472; 23430; 01638; 64415; 73030; 76942; 97110; 97165; 97535; 99100; A9270; C1713; C1776; J0690; J0780; J1100; J1630; J2250; J2405; J2704; J2710; J2795; J3010; J7120; L3670